=== PATIENT | female | born 1955 | race Caucasian/White ===

== ENCOUNTER 2024-10-12 18:29 | Inpatient (IN) ==
--- OUTSIDE RECORDS SUMMARY | 2024-10-12 18:34 | External Medical Summary | Summary of Care ---
Author Name Unknown Organization [facility] Address [address] [place] [address] Phone [phone] Care Team Providers Care Manager R D Name Role Phone Jessie Davies DO Primary Care Provider Reason for Visit * Reason Onset Date Comments Health Maintenance 05/20/2024 Encounter Details Date Type Department Care Team (Late st Contact Info) Description 05/20/2024 Telephone Family Practice [facility] [address] [facility] [place] [address] Jessie Davies DO [address] [place] [address] Health Maintenance Allergies Active Allergy Reactions Criticality Noted Date Comments Bactrim Rash 10/05/2007 Ciprofloxacin 11/27/2020 Doxycycline 10/03/1997 rash Hepatitis B Virus Vaccines 03/29/2005 Flu symptoms Pertussis Vaccine Other (Please comment) 02/28/2011 Severe arthritis documented as of this encounter (statuses as of 05/20/2024) Medications Medication Sig Dispensed Refills Start Date End Date Status OMEGA 3 1000 MG PO CAPS daily 0 03/04/2008 Active VITAMIN D3 2000 UNIT PO TABS 4000 units daily Active IBUPROFEN 200 MG PO TABS take 2-3 at bedtime as needed Active PROBIOTIC PO CAPS one daily Active Coenzyme Q10 (COQ10) 100 MG CAPS Take by mouth. Active Ascorbic Acid (VITAMIN C) 1000 MG Tablet Take 1 Tablet by mouth in the morning. Takes two to 4 tablets daily . Active Fluorouracil 5 % External Cream (Efudex)Indications: AK (actinic keratosis) Apply to rough patches on the face nightly x 2 weeks. 40 g 03/23/2021 Active Erythromycin 5 MG/GM Ophthalmic Ointment at bedtime . to both eyelids. 12/10/2021 Active Mucinex DM 30-600 MG Oral Tablet Extended Release 12 Hour Take by mouth. Activ e Benzonatate 100 MG Oral Capsule (Tessallinda Cason)Indications:V iral URI with cough Take 1 Capsule by mouth 3 times a day as needed for Cough. Do not cut, crush, or chew. 50 Capsule 1 10/24/2023 Active documented as of this encounter (statuses as of 05/20/2024) Active Problems Problem Noted Date Diagnosed Date Disorder of thyroid, unspecified 11/16/2021 Mixed hyperlipidemia 11/16/2021 Mixed rhinitis 09/10/2019 PND (post-nasal drip) 09/10/2019 Laryngopharyngeal reflux (LPR) 09/10/2019 Lingual tonsil hypertrophy 03/12/2018 Generalized OA 02/05/2012 Dyslipidemia 10/09/2009 Overview: Per Lipid Taxonomy. Gastroesophageal reflux disease with esophagitis 03/16/2004 documented as of this encounter (statuses as of 05/20/2024) Resolved Problems Problem Noted Date Diagnosed Date Resolved Date Chronic respiratory failure 11/16/2021 12/04/2022 Mild intermittent asthma without complication 11/27/19 21 12/04/2022 Deviated nasal septum 03/12/20182018 History of nonmelanoma skin cancer 07/31/2017 12/05/2018 Overview: SCC right latearl cheek 03/04 BCC righ antecubital fossa 08/02 History of nonmelanoma skin cancer 08/20/2016 07/31/2017 ALLERGIC RHINITIS - MIXED TYPE 03/07/2009 12/05/2018 Postnasal drip 03/07/2009 11/03/2017 Esophageal reflux 03/07/2009 11/03/2017 ADVANCE DIRECTIVE INFORMATION 07/27/2008 12/05/2018 Overview: No, Advance Directive brochure given to patient. Spondylolisthesis 03/16/2004 12/05/2018 IDIO PERIPH NEURPTHY NOS 08/13/1999 Myalgia and myositis 08/01/1999 019 Menopause 08/01/1999 07/03/2018 Uterine leiomyoma 02/09/1998 12/05/2018 Mixed dyslipidemia 10/09/ 9 Overview: Per Lipid Taxonomy. Dysphagia 12/05/2018 Overview: ICD-10 update of inactive term OTHER 07/03/2018 Overview: linqual tonsil hyperplasia documented as of this encounter (statuses as of 05/20/2024) Immunizations Name Administration Dates Next Due COVID-19 mRNA, LNP-s, No Pre serve, 2-Dose Series ([employer]) 10/24/2021,02/16/2021,01/24/2021 TD, Preservative Free 03/15/2022 TDAP, Age 7 and older, IM (Adacel) 12/14/2010, documented as of this encounter Social History Tobacco Use Types Packs/Day Years Used Date Smoking Tobacco: Never Smokeless Tobacco: Never Comments:no passive smoke ex posures Alcohol Use Standard Drinks/Week Comments No 0 (1 standard drink = 0.6 oz pur e alcohol) PHQ-2 Answer Date Recorded PHQ Adult Total Score 1 12/04/2022 Hunger Vital Sign Answer Date Recorded Within the past 12 months, y ou worried that your food would run out before you got the money to buy more. Never true 12/04/19 23 Within the past 12 months, t he food you bought just didn't last and you didn't have money to get more. Never true 12/04/2022 Sex and Gender Information Value Date Recorded Sex Assigned at Female 06/10/2019 11:27 AM EDT Gender Identity Female 06/10/2019 11:27 AM EDT Sexual Orientation Straight 06/10/2019 11 :27 AM EDT Job Start Date Occupation Industry Not on file Not on file Not on file documented as of this encounter Miscellaneous Notes * Telephone Encounter - Stephani Oropeza LPN - 05/20/2024 2:43 PM EDT Care Gaps Comprehensive Care Outreach Last Office/Telemedicine Visit: 03/05/2024 (in office), Visit date not found (telemedicine) Next Office Visit: Visit date not found Hemoglobin AIC Results: Lab Results Component Value Date/Time HEMOGLOBIN A1C - [facility] 6.5 (H) 06/24/2013 01:44 PM HEMOGLOBIN A1C - [facility] 6.4 (H) 09/08/2008 09:19 AM BP Readings from Last 1 Encounters: 03/05/24 128/78 Reviewed Health Maintenance below: Health Maintenance Topic Date Due Zoster Vaccines (1 of 2) Never done DXA Scan 03/05/2014 Pneumococcal Vaccine: 65+ Years (1 of 1 - PCV) Never done Colorectal Cancer Screening 02/08/2021 COVID-19 Vaccine () 06/20/2023 Depression Screening 12/04/2023 Mammogram 12/25/2023 Lipid Panel 03/29/2024 Recapture Ov Mamm Lab dexa Care Gap Outreach Action Taken: Unable to reach and [employer] message sent documented in this encounter Plan of Treatment Upcoming Encounters Date Type Department Care Team (Late st Contact Info) Description 08/04/2024 12:40 PM EDT Office Visit Dermatology [facility] [place] [address] [facility] [place] [address] Fernanda Anglin PA-C [address] [facility] [place] [address] Scheduled Procedures Name Priority Associated Diagnoses Date/Ti me COLONOSCOPY FLEXIBLE PROXIMAL DIAGNOSTIC Recall History of colon polyps Health Maintenance Due Date Last Done Comments Cologuard 1998 Fecal Occult Blood Test 1998 Sigmoidoscopy 1998 Zoster Vaccines (1 of 2) 2003 DXA Scan 03/05/2014 03/05/2007, 03/05/2007 Pneumococcal Vaccine: 65+ Years (1 of 1 - PCV) 2018 Colonoscopy 02/08/2021 02/09/2016, 01/19, 09/10/2004 Colorectal Cancer Screening 02/08/2021 COVID-19 Vaccine ( season) 2023 10/24/2021, 02/16/2021, 01/24/2021 Depression Screening 12/04/2023 12/04/2022, 02/21/2017 (Discussed) Mammogram 12/25/2023 12/24/2022, 0 04/2023, 09/23/2019, Additional history exists Lipid Panel 03/29/2024 03/29/2019, 03/20, 06/24/2013, Additional history exists Influenza Vaccine (FLU shot) (#1) 2024 RETIRED - COLONOSCOPY-EVERY 5 YRS AGES 18-100 Discontinued 02/09/2016, 02/09/2016, 09/10/2004 HPV (Gardasil) Vaccine Aged Out No lo nger eligible based on patient's age to complete this topic Hepatitis B Vaccine Aged Out No longe r eligible based on patient's age to complete this topic MENINGOCOCCAL (MENACTRA/MENVEO) Aged Out No longer eligible based on patient's age to complete this topic documented as of this encounter Medical Devices Implanted Type Area Floor Mechanic Device Identifier Shelf Expiration Date Model / Serial / Lot Lens Intraoc 17.5 - [id number] - [id number] Implanted:Qty: 1 on 12/05/2020 by Evan Quinonez MD at OR [facility] Left: Eye [employer]CH [employer] LOMB 06/19/2025 [id number] / [id number] / [id number] Lens Intraoc 18.5 - [id number] - [id number] Implanted:Qty: 1 on 12/14/2020 by Evan Quinonez MD at OR [facility] Right: Eye BAUSCH & LOMB 07/19/2025 [id number] / [id number] / [id number] documented as of this encounter Care Teams Manager R D Relationship Specialty Start Date End Date Jessie Davies DO [address] [place] [address] PCP - General Family Medicine 12/05/18 documented as of this encounter
--- OUTSIDE RECORDS SUMMARY | 2024-10-12 18:34 | External Medical Summary | Summary of Care ---
Author Name Unknown Organization [facility] Address [address] [place] [address] Phone [phone] Care Team Providers Care Slasher Runner Name Role Phone Jessie Davies Primary Care Provider Reason for Visit * Reason Comments Follow Up Skin check- pt repor ts scaly like patches on her face she would like evaluated Encounter Details Date Type Department Care Team (Late st Contact Info) Description 08/04/2024 12:40 PM EDT Office Visit Dermatology [facility] [address] [facility] [place] [address] Fernanda Anglin PA-C [address] [facility] [place] [address] Skin exam, screening for cancer*; Skin tumor; Diffuse photodamage of skin; History of nonmelanoma skin cancer; Actinic keratosis Allergies Active Allergy Reactions Criticality Noted Date Comments Bactrim Rash 10/05/2007 Ciprofloxacin 11/27/2020 Doxycycline 10/03/1997 rash Hepatitis B Virus Vaccines 03/29/2005 Flu symptoms Pertussis Vaccine Other (Please comment) 02/28/2011 Severe arthritis documented as of this encounter (statuses as of 08/06/2024) Medications Medication Sig Dispensed Refills Start Date [...] . Active Fluorouracil 5 % External Cream (Efudex)Indicati ons:AK (actinic keratosis) Apply to rough patches on the face nightly x 2 weeks. 40 g 03/23/2021 Active Additional Information Patient not taking.Reported on 08/04/2024 Erythromycin 5 MG/GM Ophthalmic Ointment at bedtime . to both eyelids. 12/10/2021 Active Benzonatate 100 MG Oral Capsule (Tesmunir Cason)Indicatio ns:Viral URI with cough Take 1 Capsule by mouth 3 times a day as needed for Cough. Do not cut, crush, or chew. 50 Capsule 1 10/24/2023 Active Additional Information Patient not taking.Reported on 08/04/2024 Multivitamin Adults Oral Tablet Take by mouth. Active Mucinex DM 30-600 MG Oral Tablet Extended Release 12 Hour Take by mouth. Discontinue d(Medicatio n List Clean Up) documented as of this encounter (statuses as of 08/06/2024) Active Problems Problem Noted Date Diagnosed Date Disorder of thyroid, unspecified 11/16/2021 Mixed hyperlipidemia 11/16/2021 Mixed rhinitis 09/10/2019 PND (post-nasal drip) 09/10/2019 Laryngopharyngeal reflux (LPR) 09/10/2019 Lingual tonsil hypertrophy 03/12/2018 Generalized OA 02/05/2012 Dyslipidemia 10/09/2009 Overview: Per Lipid Taxonomy. Gastroesophageal reflux disease with esophagitis 03/16/2004 documented as of this encounter (statuses as of 08/06/2024) Resolved Problems Problem Noted Date Diagnosed Date [...] 07/03/2018 Uterine leiomyoma 02/09/1998 12/05/2018 Mixed dyslipidemia 9 Overview: Per Lipid Taxonomy. Dysphagia 12/05/2018 Overview: ICD-10 update of inactive term OTHER 07/03/2018 Overview: linqual tonsil hyperplasia documented as of this encounter (statuses as of 08/06/2024) Immunizations Name Administration Dates Next Due COVID-19 mRNA, LNP-s, No Pre serve, 2-Dose Series (Pfizer) 10/24/2021,02/16/2021,01/24/2021 Diptheria/Tetanus (Adult) 08/12/1998 Rabies Vaccine (Rabavert) 03/12/1999,03/08/1999 TD, Preservative Free 03/15/2022 TDAP, Age 7 [...] on file documented as of this encounter Progress Notes * Chuck Perrin MD - 08/06/2024 10:40 AM EDT I have reviewed the charting notes and orders and associated images and agree with the assessment and plan of Fernanda Anglin PA-C I was available for consultation during and after the visit Chuck Perrin MD 08/06/2024 10:40 AM * Fernanda Anglin PA-C - 08/04/2024 12:44 PM EDT SUBJECTIVE: History of Present Illness: Melissa Moulton is a 69 year old female seen today for follow up of skin check. Date Last Appointment: 07/22/2023 (in office) Few dry patches on face- had treated with efudex last year Also 2 spots on scalp in part-line that feel scaly H/o SCC crown of scalp 2018, BCC R antecubital fossa 2013, SCC R cheek 2015 H/o AK's s/p cryo and Efudex 2021 REVIEW OF SYSTEMS: SKIN: No other new or changing moles. HEME/LYMPH: No new or enlarging lumps or bumps. MEDICA TIONS: Current Outpatient Medications Medication Sig Dispense Refill OMEGA 3 1000 MG PO CAPS daily 0 VITAMIN D3 2000 UNIT PO TABS 4000 units daily IBUPROFEN 200 MG PO TABS take 2-3 at bedtime as needed PROBIOTIC PO CAPS one daily Coenzyme Q10 (COQ10) 100 MG CAPS Take by mouth. Ascorbic Acid (VITAMIN C) 1000 MG Tablet Take 1 Tablet by mouth in the morning. Takes two to 4 tablets daily . Multivitamin Adults Oral Tablet Take by mouth. Fluorouracil 5 % External Cream (Efudex) Apply to rough patches on the face nightly x 2 weeks. (Patient not taking: Reported on 08/04/2024) 40 g 0 Erythromycin 5 MG/GM Ophthalmic Ointment at bedtime . to both eyelids. Benzonatate 100 MG Oral Capsule (Tessallinda Cason) Take 1 Capsule by mouth 3 times a day as needed for Cough. Do not cut, crush, or chew. (Patient not taking: Reported on 08/04/2024) 50 Capsule 1 No current facility-administered medications for this visit. ALLERG IES: Bactrim, Ciprofloxacin, Doxycycline, Hepatitis b virus vaccines, and Pertussis vaccine OBJECTIVE: GEN: Healthy, alert, no distress, appears oriented, pleasant, and cooperative. SKIN: Detailed exam of hair, face including lids and lips, neck, chest, abdomen, back, bilateral upper ext. (arm, hand, fingers), bilateral lower ext. (leg, foot, toes), and palpation of scalp completed and are normal except: 1. Scars- scalp, R cheek, R antecubital fossa 2. Part-line of scalp, R suprabrow, R lateral eyebrow- 4 keratotic pink papules 3. R nasal tip- 2mm keratotic papule 4. Posterior scalp- 1cm pink scaly patch ASSESS MENT/PLAN: 1. Hx NMSC - no evidence of recurrence Discussed sun protection with patient including proper use of sunscreens and protective clothing. ABCDs explained 2. Aks. Cryosurgery explained to the patient, consent obtained, patient, site and procedure verified, and then cryotherapy was performed with Liquid Nitrogen via cryo spray unit to 4 lesions. Location noted in physical exam. Post op course explained. 3. AK vs NMSC. (Thin shave) Biopsy of the lesion noted above to establish and confirm diagnosis. The procedure, risks, benefits, alternatives and expected outcomes were discussed with the patient and consent was obtained. Time out called. Patient identified, procedure verified, site identified and verified. Patient and staff present in agreement. Area prepped with alcohol and anesthetized with 0.5% lidocaine with epinephrine at 1:200,000 concentration. Biopsy of lesion performed. 20% AlCl and bandaging applied. Specimen sent to pathology. Patient instructed in routine post-op care. 4. Unclear etiology. Appears to be a dermatitis, possibly nummular. No papule or nodule is palpable. Recheck in 6 months. Follow-up: 6 months (recheck Aks, recheck posterior scalp lesion) There were no barriers tolearning and no other pain was related to today's visit. The patient and/or person accompanying patient demonstrates understanding of the visit and treatment. Fernanda Anglin PA-C 08/04/2024 12:45 PM documented in this encounter Nursing Notes * Maru Flores LPN - 08/04/2024 12:34 PM EDT Patient identified by name and date of . Do you have any concerns about pain management for today's visit? No Living Will or Advance Directive for Health Care as noted on problem list. [facility] is a way you can talk to your provider online through e-mail. Would you like to sign up? I can activate it for you? ALREADY ACTIVE Chief Complaint Patient presents with Follow Up Skin check- pt reports scaly like patches on her face she would like evaluated documented in this encounter Miscellaneous Notes * Addendum Note - Maru Flores LPN - 08/04/2024 3:15 PM EDTAddended by: MARU FLORES on: 08/04/2024 03:15 PM Modules accepted: Orders documented in this encounter Plan of Treatment Upcoming Encounters Date Type Department Care Team (Late st Contact Info) Description 05/04/2025 9:00 AM EDT Office Visit [facility]atology [facility] [address] [place] [address] Fernanda Anglin PA-C [address] [facility] [place] [address] Scheduled Procedures Name Priority Associated Diagnoses Date/Ti me COLONOSCOPY FLEXIBLE PROXIMAL DIAGNOSTIC Recall History of colon polyps Health Maintenance Due Date Last Done Comments Cologuard 1998 Fecal Occult Blood Test 1998 Sigmoidoscopy 1998 Zoster Vaccines (1 of 2) 2003 DXA Scan 03/05/2014 03/05/2007, 03/05/2007 Pneumococcal Vaccine: 65+ Years (1 of 1 - PCV) 2018 Adult Wellness Visit 2019 Colonoscopy 02/08/2021 02/09/2016, 01/19, 09/10/2004 Colorectal Cancer Screening 02/08/2021 Depression Screening 12/04/2023 12/04/2022, 02/21/2017 (Discussed) Mammogram 12/25/2023 12/24/2022, 04/2023, 09/23/2019, Additional history exists Lipid Panel 03/29/2024 03/29/2019, 03/20, 06/24/2013, Additional history exists COVID-19 Vaccine ( season) 2024 10/24/2021, 02/16/2021, 01/24/2021 Influenza Vaccine (FLU shot) (#1) 2024 RETIRED [...] this encounter Medical Devices Implanted Type Area Drum Sprayer Device Identifier Shelf Expiration Date Model / Serial / Lot Lens Intraoc 17.5 - [id number] - [id number] Implanted:Qty: 1 on 12/05/2020 by Evan Quinonez MD at [facility] Left: Eye BAUSCH [employer] LOMB 06/19/2025 [id number] / [id number] / [id number] Lens Intraoc 18.5 - [id number] - [id number] Implanted:Qty: 1 on 12/14/2020 by Evan Quinonez MD at OR [facility] Right: Eye BAUSCH & LOMB 07/19/2025 [id number] / [id number] / [id number] documented as of this encounter Procedures Procedure Name Priority Date/Time Associated Diagnosis Comments SURGICAL PATHOLOGY Routine 08/04/2024 1: 07 PM EDT Skin tumor DERM IMAGE (SITE) Routine 08/04/2024 Skin tumor documented in this encounter Results * SURGICAL PATHOLOGY (08/04/2024 1:07 PM EDT) Final Diagnosis A. Skin, R nasal tip, shave: Actinic keratosis. 08/06/2024 9:00 AM EDT [facility] Clinical History See Order Comments 08/06/2024 9:00 AM EDT [facility] Order Comments R nasal tip- 2mm keratotic papule. Ak vs nmsc. (Thin shave) 08/06/2024 9:00 AM EDT [facility] Gross Description A. Skin. Received in formalin with a container labeled with "Melissa Moulton", "[id number]", "1955" and " right nasal tip". Received is a 0.5 x 0.4 cm skin shave. The skin surface is white-simmons, firm, smooth throughout. The underlying tissue is inked. The specimen is bisected and submitted in cassette A1. Gross By: MF 08/06/2024 9:00 AM EDT [facility]ORY [facility] Sign Out Location Pathologist sign out performed at [facility] ([facility]), [address] [place] [address], [place] [address]. 08/06/2024 9:00 AM EDT [facility]ORY [facility] Photographic images and diagrams represent diaz findings in this case; they are not intended to replace a complete review of the final diagnostic report. The following statement applies to Flow Cytometry, Histology, In situ Hybridization Assays and Molecular Genetics. This test was developed and performed at [facility] and its performance characteristics determined by [employer]. It has not been cleared or approved by the U.S. Food and Drug Administration. The FDA has determined that such clearance or approval is not necessary. This test is used for clinical purposes. It should not be regarded as investigational or for research. Special stains, including histochemical stains, and studies using immunologic and ADIEL methodology (where applicable) are performed with appropriate positive and negative control reactions. 08/06/2024 9:00 AM EDT LAB[facility]ORY [facility] Tissue Skin structure / Unknown 08/04/2024 1:07 PM EDT 08/04/2024 1:07 PM EDT Comment:R nasal tip- 2mm ker atotic papule. Ak vs nmsc. (Thin shave) Fernanda Anglin PA-C LAB PATHOLOGY [facility] [address] [place] [address] * DERM IMAGE (SITE) (08/04/2024) 08/04/2024 Fernanda Anglin PA-C DIGITAL PHOTOGR APHY documented in this encounter Visit Diagnoses Diagnosis Skin exam, screening for cancer- Primary Screening for malignant neoplasm of the skin Skin tumor Neoplasm of uncertain behavior of skin Diffuse photodamage of skin Other chronic dermatitis due to solar radiation History of nonmelanoma skin cancer Personal history of other malignant neoplasm of skin Actinic keratosis documented in this encounter Care Teams Slasher Runner Relationship Specialty Start Date End Date Jessie Davies DO [address] [place] [address] PCP - General Family Medicine 12/05/18 documented as of this encounter
--- OUTSIDE RECORDS SUMMARY | 2024-10-12 18:34 | External Medical Summary | Summary of Care ---
Author Name Unknown Organization [facility] Address [address] [place] [address] Phone [phone] Care Team Providers Care Commercial Real Estate Underwriter Name Role Phone Jessie Davies DO Primary Care Provider Reason for Visit * Reason Onset Date Comments Health Maintenance 08/25/2024 Encounter Details Date Type Department Care Team (Late st Contact Info) Description 08/25/2024 Telephone Family Practice [facility] [address] [facility] [place] [address] Jessie Davies DO [address] [place] [address] Health Maintenance Allergies Active Allergy Reactions Criticality Noted Date Comments Bactrim Rash 10/05/2007 Ciprofloxacin 11/27/2020 Doxycycline 10/03/1997 rash Hepatitis B Virus Vaccines 03/29/2005 Flu symptoms Pertussis Vaccine Other (Please comment) 02/28/2011 Severe arthritis documented as of this encounter (statuses as of 08/25/2024) Medications Medication Sig Dispensed Refills Start Date [...] . Active Fluorouracil 5 % External Cream (Efudex)Indication s:AK (actinic keratosis) Apply to rough patches on the face nightly x 2 weeks. 40 g 03/23/2021 Active Additional Information Patient not taking.Reported on 08/04/2024 Erythromycin 5 MG/GM Ophthalmic Ointment at bedtime . to both eyelids. 12/10/2021 Active Benzonatate 100 MG Oral Capsule (Tessallinda Perlheri)Indications :Viral URI with cough Take 1 Capsule by mouth 3 times a day as needed for Cough. Do not cut, crush, or chew. 50 Capsule 1 10/24/2023 Active Additional Information Patient not taking.Reported on 08/04/2024 Multivitamin Adults Oral Tablet Take by mouth. Ac tive documented as of this encounter (statuses as of 08/25/2024) Active Problems Problem Noted Date Diagnosed Date Disorder of thyroid, unspecified 11/16/2021 Mixed hyperlipidemia 11/16/2021 Mixed rhinitis 09/10/2019 PND (post-nasal drip) 09/10/2019 Laryngopharyngeal reflux (LPR) 09/10/2019 Lingual tonsil hypertrophy 03/12/2018 Generalized OA 02/05/2012 Dyslipidemia 10/09/2009 Overview: Per Lipid Taxonomy. Gastroesophageal reflux disease with esophagitis 03/16/2004 documented as of this encounter (statuses as of 08/25/2024) Resolved Problems Problem Noted Date Diagnosed Date [...] 07/03/2018 Uterine leiomyoma 02/09/1998 12/05/2018 Mixed dyslipidemia 10/09/200 9 Overview: Per Lipid Taxonomy. Dysphagia 12/05/2018 Overview: ICD-10 update of inactive term OTHER 07/03/2018 Overview: linqual tonsil hyperplasia documented as of this encounter (statuses as of 08/25/2024) Immunizations Name Administration Dates Next Due COVID-19 mRNA, LNP-s, No Pre serve, 2-Dose Series ([employer]) 10/24/2021,02/16/2021,01/24/2021 TD, Preservative Free 03/15/2022 TDAP, Age [...] Telephone Encounter - Stephani Oropeza LPN - 08/25/2024 10:29 AM EST Care Gaps Comprehensive Care Outreach Last Office/Telemedicine [...] (1 of 1 - PCV) Never done Adult Wellness Visit Never done Colorectal Cancer Screening 02/08/2021 Depression Screening 12/04/2023 Mammogram 12/25/2023 Reached out in May and sent letter Care Gap Outreach Action Taken: Outreach not indicated documented in this encounter Plan of Treatment Upcoming Encounters Date Type Department Care Team (Late st Contact Info) Description 05/04/2025 9:00 AM EDT Office Visit Dermatology [facility] 200 [facility] [place] [address] Fernadna Anglin PA-C [address] [facility] [place] [address] Scheduled Procedures Name Priority Associated Diagnoses Date/Ti [...] this encounter Medical Devices Implanted Type Area Manager College Device Identifier Shelf Expiration Date Model / Serial / Lot Lens Intraoc 17.5 - [id number] - [id number] Implanted:Qty: 1 on 12/05/2020 by Evan Quinonez MD at OR [facility] Left: Eye BAUSCH & LOMB 06/19/2025 [id number] / [id number] / [id number] Lens Intraoc 18.5 - [id number] - [id number] Implanted:Qty: 1 on 12/14/2020 by Evan Quinonez MD at OR [facility] Right: Eye BAUSCH & LOMB 07/19/2025 [id number] / [id number] / [id number] documented as of this encounter Care Teams Commercial Real Estate Underwriter Relationship Specialty Start Date End Date Jessie Davies DO [address] [place], [place] [address] PCP - General Family Medicine 12/05/18 documented as of this encounter
--- OUTSIDE RECORDS SUMMARY | 2024-10-12 18:34 | External Medical Summary | Summary of Care ---
Author Name Unknown Organization [facility] Address [address] [place] [address] Phone [phone] Care Team Providers Care Rhinologist Name Role Phone Jessie Davies DO Primary Care Provider Reason for Visit * Reason Onset Date Comments Health Maintenance 08/25/2024 Encounter Details Date Type Department Care Team (Late st Contact Info) Description 08/25/2024 Telephone Family Practice [facility] 200 [place] [address] Jessie Davies DO [address] [place] [address] Health Maintenance Allergies Active Allergy Reactions Criticality Noted Date Comments Bactrim Rash 10/05/2007 Ciprofloxacin 11/27/2020 Doxycycline 10/03/1997 rash Hepatitis B Virus Vaccines 03/29/2005 Flu symptoms Pertussis Vaccine Other (Please comment) 02/28/2011 Severe arthritis documented as of this encounter (statuses as of 08/31/2024) Medications OMEGA 3 1000 MG PO CAPS daily 0 8 Active VITAMIN D3 2000 UNIT PO TABS 4000 units daily Active IBUPROFEN 200 MG PO TABS take 2-3 at bedtime as needed Active PROBIOTIC PO CAPS one daily Active Coenzyme Q10 (COQ10) 100 MG CAPS Take by mouth. Activ e Ascorbic Acid (VITAMIN C) 1000 MG Tablet Take 1 Tablet by mouth in the morning. Takes two to 4 tablets daily . Active Fluorouracil 5 % External Cream (Efudex)Indicat ions:AK (actinic keratosis) Apply to rough patches on the face nightly x 2 weeks. 40 g 1 Active Additional Information Patient not taking.Reported on 08/04/2024 Erythromycin 5 MG/GM Ophthalmic Ointment at bedtime . to both eyelids. 2 Active Benzonatate 100 MG Oral Capsule (Carlita Cason)Indicati ons:Viral URI with cough Take 1 Capsule by mouth 3 times a day as needed for Cough. Do not cut, crush, or chew. 50 Capsule 1 4 Active Additional Information Patient not taking.Reported on 08/04/2024 Multivitamin Adults Oral Tablet Take by mouth. Activ e documented as of this encounter (statuses as of 08/31/2024) Active Problems Problem Noted Date Diagnosed Date Disorder of thyroid, unspecified 11/16/2021 Mixed hyperlipidemia 11/16/2021 Mixed rhinitis 09/10/2019 PND (post-nasal drip) 09/10/2019 Laryngopharyngeal reflux (LPR) 09/10/2019 Lingual tonsil hypertrophy 03/12/2018 Generalized OA 02/05/2012 Dyslipidemia 10/09/2009 Overview (10/09/2009): Per Lipid Taxonomy. Gastroesophageal reflux disease with esophagitis 03/16/2004 documented as of this encounter (statuses as of 08/31/2024) Resolved Problems Problem Noted Date Diagnosed Date Resolved Date Chronic respiratory failure 11/16/2021 12/04/2022 Mild intermittent asthma without complication 11/27/19 21 12/04/2022 Deviated nasal septum 03/12/20182018 History of nonmelanoma skin cancer 07/31/2017 12/05/2018 Overview (07/31/2017): SCC right latearl cheek 03/04 BCC righ antecubital fossa 08/02 History of nonmelanoma skin cancer 08/20/2016 07/31/2017 ALLERGIC RHINITIS - MIXED TYPE 03/07/2009 12/05/2018 Postnasal drip 03/07/2009 11/03/2017 Esophageal reflux 03/07/2009 11/03/2017 ADVANCE DIRECTIVE INFORMATION 07/27/2008 12/05/2018 Overview (06/24/2008): No, Advance Directive brochure given to patient. Spondylolisthesis 03/16/2004 12/05/2018 IDIO PERIPH NEURPTHY NOS 08/13/1999 Myalgia and myositis 08/01/1999 019 Menopause 08/01/1999 07/03/2018 Uterine leiomyoma 02/09/1998 12/05/2018 Mixed dyslipidemia 9 Overview (10/09/2009): Per Lipid Taxonomy. Dysphagia 12/05/2018 Overview (01/11/2016): ICD-10 update of inactive term OTHER 07/03/2018 Overview (03/04/2008): linqual tonsil hyperplasia documented as of this encounter (statuses as of 08/31/2024) Immunizations Name Administration Dates Next Due COVID-19 [...] money to get more. Never true 12/04/2022 Comments No Sex and Gender Information Value Date Recorded Sex Assigned at Female 06/10/2019 11:27 AM EDT Legal Sex Female 5:25 AM EST Gender Identity Female 06/10/2019 11:27 AM EDT Sexual Orientation Straight 06/10/2019 11 :27 AM EDT Occupation Industry Job Start Date Job End Date housewife Not on file Not on file Not on file documented as of this encounter Miscellaneous Notes * Telephone Encounter - Stephani Oropeza LPN - 08/31/2024 8:58 AM EST Patient left me a vm. I tried to call her back. It sounds like someone picks up and hangs up. * Telephone Encounter - Stephani Oropeza LPN [...] Office Visit [facility]atology [facility] [address] [place] [address] Fernanda Anglin PA-C [address] [place] [address] Scheduled Procedures Name Priority Associated Diagnoses Date/Ti [...] this encounter Medical Devices Implanted Type Area Rodbuster Device Identifier Shelf Expiration Date Model / Serial / Lot Lens Intraoc 17.5 - [id number] - [id number] Implanted:Qty: 1 on 12/05/2020 by Evan Quinonez MD at OR [facility] Left: Eye BAUSCH & LOMB 06/19/2025 [id number] / [id number] / [id number] Lens Intraoc 18.5 - [id number] - [id number] Implanted:Qty: 1 on 12/14/2020 by Evan Quinonez MD at OR [facility] Right: Eye BAUSCH & LOMB 07/19/2025 [id number] / [id number] / [id number] documented as of this encounter Care Teams Rhinologist Relationship Specialty Start Date End Date Jessie Davies DO [address] [place] [address] PCP - General Family Medicine 12/05/18 documented as of this encounter
--- OUTSIDE RECORDS SUMMARY | 2024-10-12 18:34 | External Medical Summary | Summary of Care ---
Author Name Unknown Organization [facility] Address [address] [place] [address] Phone [phone] Care Team Providers Care Manager Mail Name Role Phone Jessie Davies Primary Care Provider Reason for Visit * Reason Comments Cough Sinus Problem Encounter Details Date Type Department Care Team (Latest Contact Info) Description 09/09/2024 1:00 PM EST Office Visit General Internal Medicine [facility] 200 [facility] [place] [address] Miriam Bertrand MD [address] [facility] [place] [address] Bronchitis, complicated*; Nodule of right lobe of thyroid gland; Mixed hyperlipidemia Allergies Active Allergy Reactions Criticality Noted Date Comments Bactrim Rash 10/05/2007 Ciprofloxacin 11/27/2020 Doxycycline 10/03/1997 rash Hepatitis B Virus Vaccines 03/29/2005 Flu symptoms Pertussis Vaccine Other (Please comment) 02/28/2011 Severe arthritis documented as of this encounter (statuses as of 09/09/2024) Medications OMEGA 3 1000 MG PO CAPS [...] bedtime . to both eyelids. 2 Active Multivitamin Adults Oral Tablet Take by mouth. Activ e Azithromycin 250 MG Oral Tablet (Zithromax Z-Angle) Take two tablets by mouth on first day, then 1 tablet daily until gone 6 Tablet 4 Active Benzonatate 100 MG Oral Capsule (Tessalon Perles)Indicati ons:Bronchitis, complicated Take 1 Capsule by mouth 3 times a day as needed for Cough. Do not cut, crush, or chew. 50 Capsule 1 4 Active Ventolin HFA 108 (90 Base) MCG/ACT Inhalation Aerosol SolutionIndicat ions:Bronchitis , complicated Inhale 2 Puffs by mouth every 4 hours as needed for Wheezing. 18 g 3 4 Active predniSONE 20 MG Oral Tablet (Deltasone)Jacinta cations:Bronchi tis, complicated Take 2 Tablets by mouth in the morning for 5 days. 10 Tablet 4 024 Active Benzonatate 100 MG Oral Capsule (Tessalon Perles)Indicati ons:Viral URI with cough Take 1 Capsule by mouth 3 times a day as needed for Cough. Do not cut, crush, or chew. 50 Capsule 1 4 024 Discontin ued(End of Procedure ) documented as of this encounter (statuses as of 09/09/2024) Active Problems Problem Noted Date Diagnosed Date Nodule of right lobe of thyroid gland 09/09/2024 Disorder of thyroid, unspecified 11/16/2021 Mixed hyperlipidemia 11/16/2021 Mixed rhinitis 09/10/2019 PND (post-nasal drip) 09/10/2019 Laryngopharyngeal reflux (LPR) 09/10/2019 Lingual tonsil hypertrophy 03/12/2018 Generalized OA 02/05/2012 Dyslipidemia 10/09/2009 Overview (10/09/2009): Per Lipid Taxonomy. Gastroesophageal reflux disease with esophagitis 03/16/2004 documented as of this encounter (statuses as of 09/09/2024) Resolved Problems Problem Noted Date Diagnosed Date [...] as of this encounter (statuses as of 09/09/2024) Immunizations Name Administration Dates Next Due COVID-19 mRNA, LNP-s, No Pre serve, 2-Dose Series ([employer]) 10/24/2021,02/16/2021,01/24/2021 TD, Preservative Free 03/15/2022 TDAP, Age [...] on file documented as of this encounter Last Filed Vital Signs Vital Sign Reading Time Taken Comments Blood Pressure 124/72 09/09/2024 1:06 PM EST Pulse 58 09/09/2024 1:06 PM EST Temperature 37.3 C (99.1 F) 09/09/2024 1:06 PM ES T Respiratory Rate - - Oxygen Saturation 96% 09/09/2024 1:06 PM EST Inhaled Oxygen Concentration - - Weight 75.8 kg (167 lb 3.2 oz) 09/09/2024 1:06 P M EST Height 152.4 cm (5') 09/09/2024 1:06 PM EST Body Mass Index 32.65 09/09/2024 1:06 PM EST documented in this encounter Progress Notes * Miriam Bertrand MD - 09/09/2024 1:14 PM EST Images from the original note were not included. History of Present Illness Melissa Moulton is a 69 year old female that presents for Cough and Sinus Problem Pt is here for worsening cough with green phegm, sinus pressure, PND, fever at home for around a week. Headache+ Have tried nsaids, mucinex with some relief. Wheezing+ Home covid negative. Doesn't take flu shot. Physical Exam Vitals: 09/09/24 1306 Temp: 99.1 F (37.3 C) Pulse: 58 SpO2: 96% BP: 124/72 BMI: 32.65 BP Readings from Last 3 Encounters: 09/09/24 124/72 03/05/24 128/78 10/24/23 132/62 Wt Readings from Last 3 Encounters: 09/09/24 167 lb 3.2 oz (75.8 kg) 03/05/24 164 lb 12 oz (74.7 kg) 10/24/23 164 lb 1.6 oz (74.4 kg) BMI Readings from Last 3 Encounters: 09/09/24 32.65 kg/m 03/05/24 32.18 kg/m 10/24/23 32.05 kg/m Ht Readings from Last 3 Encounters: 09/09/24 5' (1.524 m) 10/24/23 5' (1.524 m) 11/24/22 5' (1.524 m) HEENT: PERRLA, EOMI, anicteric sclera, b/l tympanic membrane is pearly white, no erythema, no pharyngeal erythema, no lymphadenopathy, neck supple CVS: RRR, no murmurs, rubs or gallops, s1 s 2normal. RESP: coarse to auscultation, +wheezing , no crackles EXT: no edema, cyanosis, peripheral pulses palpable bilaterally No large joint swelling, no redness, range of motion normal. Skin normal. Gait normal. Mood stable No focal weakness I have reviewed the following results: None Assessment and Plan Bronchitis, complicated (Primary) - Benzonatate 100 MG Oral Capsule (Tessalon Perlheri); Take 1 Capsule by mouth 3 times a day as needed for Cough. Do not cut, crush, or chew. - Ventolin HFA 108 (90 Base) MCG/ACT Inhalation Aerosol Solution; Inhale 2 Puffs by mouth every 4 hours as needed for Wheezing. - predniSONE 20 MG Oral Tablet (Deltasone); Take 2 Tablets by mouth in the morning for 5 days. Advised hydration. Nodule of right lobe of thyroid gland Mixed hyperlipidemia Other orders - Azithromycin 250 MG Oral Tablet (Zithromax Z-Angel); Take two tablets by mouth on first day, then 1tablet daily until gone Wrap-Up Time: I spent a total of 30-39 minutes (exact time 30 mins) on the date of service in preparation, delivery, and documentation of the care provided to Melisas Moulton excluding any time spent in the performance of separately billed services. documented in this encounter Nursing Notes * Reta Baez CMA - 09/09/2024 1:03 PM EST Patient presents today with complaints of cold symptoms that started on Friday. She has significant sinus pressure causing headache, chest congestion with green mucus production, persistent cough that gets worse when laying down, as well as worsening congestion with laying down. She denies any fever or chills since Friday, did see temps of 100-101. She is taking mucinex and advil. documented in this encounter Plan of Treatment Upcoming Encounters Date Type Department Care Team (Late st Contact Info) Description 05/04/2025 9:00 AM EDT Office Visit Dermatology [facility] [place] 200 [facility] [place] [address] Fernanda Anglin PA-C 200 [facility] [place] [address] Scheduled Procedures Name Priority Associated Diagnoses Date/Ti [...] this encounter Medical Devices Implanted Type Area Emergency Registrar Device Identifier Shelf Expiration Date Model / Serial / Lot Lens Intraoc 17.5 - [id number] - [id number] Implanted:Qty: 1 on 12/05/2020 by Evan Quinonez MD at OR [facility] Left: Eye BAUSCH [employer] LOMB 06/19/2025 [id number] / [id number] / [id number] Lens Intraoc 18.5 - [id number] - [id number] Implanted:Qty: 1 on 12/14/2020 by Evan Quinonez MD at OR [facility] Right: Eye BAUSCH & LOMB 07/19/2025 [id number] / [id number] / [id number] documented as of this encounter Visit Diagnoses Diagnosis Bronchitis, complicated- Primary Bronchitis, not specified as acute or chronic Nodule of right lobe of thyroid gland Mixed hyperlipidemia documented in this encounter Care Teams Manager Mail Relationship Specialty Start Date End Date Jessie Davies DO [address] [place] [address] PCP - General Family Medicine 12/05/18 documented as of this encounter
--- OUTSIDE RECORDS SUMMARY | 2024-10-12 18:34 | External Medical Summary | Summary of Care ---
Author Name Unknown Organization [facility] Address [address] [place] [address] Phone [phone] Care Team Providers Care Cut Lace Machine Operator Name Role Phone Jessie Davies Primary Care Provider Reason for Visit * Reason Onset Date Comments Mycode - Thinking About It But No Form Provided 08/04/2024 Encounter Details Date Type Department Care Team (Late st Contact Info) Description 08/04/2024 Orders Only Outcomes Research Department [address] [place], [place] [id number] Guy Conner CHRA MyCode Nonconsent Documentation Allergies Active Allergy Reactions Criticality Noted Date Comments Bactrim Rash 10/05/2007 Ciprofloxacin 11/27/2020 Doxycycline 10/03/1997 rash Hepatitis B Virus Vaccines 03/29/2005 Flu symptoms Pertussis Vaccine Other (Please comment) 02/28/2011 Severe arthritis documented as of this encounter (statuses as of 08/04/2024) Medications Medication Sig Dispensed Refills Start Date [...] Active Benzonatate 100 MG Oral Capsule (Tessallinda Cason)Indications :Viral URI with cough Take 1 Capsule by mouth 3 times a day as needed for Cough. Do not cut, crush, or chew. 50 Capsule 1 10/24/2023 Active Additional Information Patient not taking.Reported on 08/04/2024 Multivitamin Adults Oral Tablet Take by mouth. Ac tive documented as of this encounter (statuses as of 08/04/2024) Active Problems Problem Noted Date Diagnosed Date Disorder of thyroid, unspecified 11/16/2021 Mixed hyperlipidemia 11/16/2021 Mixed rhinitis 09/10/2019 PND (post-nasal drip) 09/10/2019 Laryngopharyngeal reflux (LPR) 09/10/2019 Lingual tonsil hypertrophy 03/12/2018 Generalized OA 02/05/2012 Dyslipidemia 10/09/2009 Overview: Per Lipid Taxonomy. Gastroesophageal reflux disease with esophagitis 03/16/2004 documented as of this encounter (statuses as of 08/04/2024) Resolved Problems Problem Noted Date Diagnosed Date [...] as of this encounter (statuses as of 08/04/2024) Immunizations Name Administration Dates Next Due COVID-19 mRNA, LNP-s, No Pre serve, 2-Dose Series ([employer]) 10/24/2021,02/16/2021,01/24/2021 TD, Preservative Free 03/15/2022 TDAP, Age [...] as of this encounter Progress Notes * Guy Conner CHRA - 08/04/2024 3:10 PM EDT MyCode Nonconsent Documentation Melissa Moulton was approached in the clinic regarding participation in the MyCode Project and did not consent. documented in this encounter Plan of Treatment Upcoming Encounters Date Type Department Care Team (Late st Contact Info) Description 05/04/2025 9:00 AM EDT [facility] [address] [facility] [place] [address] Fernanda Anglin PA-C 200 [facility] [place] [address] Scheduled Procedures Name Priority Associated Diagnoses Date/Ti [...] 12/04/2023 12/04/2022, 02/21/2017 (Discussed) Mammogram 12/25/2023 12/24/2022, 0304/2023, 09/23/2019, Additional history exists Lipid Panel 03/29/2024 03/29/2019, 03/20, 06/24/2013, Additional history exists COVID-19 Vaccine (2023- season) 2024 10/24/2021, 02/16/2021, 01/24/2021 Influenza Vaccine [...] this encounter Medical Devices Implanted Type Area Business Agent Device Identifier Shelf Expiration Date Model / Serial / Lot Lens Intraoc 17.5 - [id number] - [id number] Implanted:Qty: 1 on 12/05/2020 by Evan Quinonez MD at OR [facility] Left: Eye [employer]USCH [employer] LOMB 06/19/2025 [id number] / [id number] / [id number] Lens Intraoc 18.5 - [id number] - [id number] Implanted:Qty: 1 on 12/14/2020 by Evan Quinonez MD at OR [facility] Right: Eye BAUSCH & LOMB 07/19/2025 [id number] / [id number] / [id number] documented as of this encounter Care Teams Cut Lace Machine Operator Relationship Specialty Start Date End Date Jessie Davies DO [address] [place] [address] PCP - General Family Medicine 12/05/18 documented as of this encounter
--- OUTSIDE RECORDS SUMMARY | 2024-10-12 18:34 | External Medical Summary | Summary of Care ---
Author Name Unknown Organization [facility] Address [address] [place] [address] Phone [phone] Care Team Providers Care Archery Equipment Repairer Name Role Phone Jessie Davies Primary Care Provider Reason for Visit * Reason Comments Follow Up Skin check- pt repor ts scaly like patches on her face she would like evaluated Encounter Details Date Type Department Care Team (Late st Contact Info) Description 08/04/2024 12:40 PM EDT Office Visit Dermatology [facility] [address] [facility] [place] [address] Fernanda Anglin PA-C [address] [facility] [place] [address] Skin exam, screening for cancer*; Skin tumor; [...] mRNA, LNP-s, No Pre serve, 2-Dose Series (Stratos) 10/24/2021,02/16/2021,01/24/2021 TD, Preservative Free 03/15/2022 TDAP, Age [...] as of this encounter Progress Notes * Fernanda Anglin PA-C - 08/04/2024 12:44 [...] both eyelids. Benzonatate 100 MG Oral Capsule (Carlita Cason) Take 1 Capsule by mouth 3 [...] Health Care as noted on problem list. [facility] is a way you can talk to your provider online through e-mail. Would you like to sign up? I can activate it for you? ALREADY ACTIVE Chief Complaint Patient presents with Follow Up Skin check- pt reports scaly like patches on her face she would like evaluated documented in this encounter Plan of Treatment Upcoming Encounters Date Type Department Care Team (Late st Contact Info) Description 05/04/2025 9:00 AM EDT Office Visit Dermatology [facility] [place] [address] [facility] [place] [address] Fernanda Anglin PA-C [address] [facility] [place] [address] Pending Results Name Type Priority Associated Diagnoses Date /Time SURGICAL PATHOLOGY Pathology Routine Skin tumor 08/04/2024 1:07 PM EDT Scheduled Procedures Name Priority Associated Diagnoses Date/Ti az COLONOSCOPY FLEXIBLE PROXIMAL DIAGNOSTIC Recall History of [...] 12/04/2023 12/04/2022, 02/21/2017 (Discussed) Mammogram 12/25/2023 12/24/2022, 030 04/2023, 09/23/2019, Additional history exists Lipid Panel [...] this encounter Medical Devices Implanted Type Area Histotechnologist Supervisor Device Identifier Shelf Expiration Date Model / Serial / Lot Lens Intraoc 17.5 - [id number] - [id number] Implanted:Qty: 1 on 12/05/2020 by Evan Quinonez MD at OR [facility] Left: Eye [employer]USCH [employer] LOMB 06/19/2025 [id number] / [id number] / [id number] Lens Intraoc 18.5 - [id number] - [id number] Implanted:Qty: 1 on 12/14/2020 by Evan Quinonez MD at OR [facility] Right: Eye BAUSCH [employer] LOMB 07/19/2025 [id number] / [id number] / [id number] documented as of this encounter Visit Diagnoses Diagnosis Skin exam, screening for cancer- Primary Screening for malignant neoplasm of the skin Skin tumor Neoplasm of uncertain behavior of skin Diffuse photodamage of skin Other chronic dermatitis due to solar radiation History of nonmelanoma skin cancer Personal history of other malignant neoplasm of skin Actinic keratosis documented in this encounter Care Teams Archery Equipment Repairer Relationship Specialty Start Date End Date Jessie Davies DO [address] [place] [address] PCP - General Family Medicine 12/05/18 documented as of this encounter
--- OUTSIDE RECORDS SUMMARY | 2024-10-12 18:34 | External Medical Summary | Summary of Care ---
Author Name Unknown Organization [facility] Address [address] [place] [address] Phone [phone] Care Team Providers Care Grinder Machine Setter Name Role Phone Jessie Davies Primary Care Provider Reason for Visit * Reason Comments Follow Up Skin check- pt repor ts scaly like patches on her face she would like evaluated Encounter Details Date Type Department Care Team (Late st Contact Info) Description 08/04/2024 12:40 PM EDT Office Visit Dermatology [facility] [address] [facility] [place] [address] Fernanda Anglin PA-C [address] [facility] [place] [address] Skin exam, screening for cancer*; Skin tumor; [...] Health Care as noted on problem list. [facility] is a way you can talk to [...] 05/04/2025 9:00 AM EDT Office Visit Dermatology [facility] [address] [facility] [place] [address] Fernanda Anglin PA-C [address] [facility] [place] [address] Pending Results Name Type Priority Associated Diagnoses [...] this encounter Medical Devices Implanted Type Area Financial Retirement Plan Specialist Device Identifier Shelf Expiration Date Model / Serial / Lot Lens Intraoc 17.5 - [id number] - [id number] Implanted:Qty: 1 on 12/05/2020 by Evan Quinonez MD at OR [facility] Left: Eye BAUSCH [employer] LOMB 06/19/2025 [id number] / [id number] / [id number] Lens Intraoc 18.5 - [id number] - [id number] Implanted:Qty: 1 on 12/14/2020 by Evan Quinonez MD at OR [facility] Right: Eye BAUSCH & LOMB 07/19/2025 [id number] / [id number] / [id number] documented as of this encounter Visit Diagnoses Diagnosis Skin exam, screening for cancer- Primary Screening for malignant neoplasm of the skin Skin tumor Neoplasm of uncertain behavior of skin Diffuse photodamage of skin Other chronic dermatitis due to solar radiation History of nonmelanoma skin cancer Personal history of other malignant neoplasm of skin Actinic keratosis documented in this encounter Care Teams Grinder Machine Setter Relationship Specialty Start Date End Date Jessie Davies DO [address] [facility] [place] [address] PCP - General Family Medicine 12/05/18 documented as of this encounter
--- OUTSIDE RECORDS SUMMARY | 2024-10-12 18:34 | External Medical Summary | Summary of Care ---
Author Name Unknown Organization [facility] Address [address] [place] [address] Phone [phone] Care Team Providers Care Sandblast Operator Name Role Phone Jessie Davies DO Primary Care Provider Reason for Visit * Reason Onset Date Comments Health Maintenance 05/20/2024 Encounter Details Date Type Department Care Team (Late st Contact Info) Description 05/20/2024 Telephone Family Practice [facility] [address] [facility] [place] [address] Jessie Davies DO [address] [place] [address] Health Maintenance Allergies Active Allergy Reactions Criticality Noted Date Comments Bactrim Rash 10/05/2007 Ciprofloxacin 11/27/2020 Doxycycline 10/03/1997 rash Hepatitis B Virus Vaccines 03/29/2005 Flu symptoms Pertussis Vaccine Other (Please comment) 02/28/2011 Severe arthritis documented as of this encounter (statuses as of 06/28/2024) Medications Medication Sig Dispensed Refills Start Date [...] as of this encounter (statuses as of 06/28/2024) Active Problems Problem Noted Date Diagnosed Date Disorder of thyroid, unspecified 11/16/2021 Mixed hyperlipidemia 11/16/2021 Mixed rhinitis 09/10/2019 PND (post-nasal drip) 09/10/2019 Laryngopharyngeal reflux (LPR) 09/10/2019 Lingual tonsil hypertrophy 03/12/2018 Generalized OA 02/05/2012 Dyslipidemia 10/09/2009 Overview: Per Lipid Taxonomy. Gastroesophageal reflux disease with esophagitis 03/16/2004 documented as of this encounter (statuses as of 06/28/2024) Resolved Problems Problem Noted Date Diagnosed Date [...] as of this encounter (statuses as of 06/28/2024) Immunizations Name Administration Dates Next Due COVID-19 [...] Telephone Encounter - Stephani Oropeza LPN - 06/28/2024 1:36 PM EDT letter * Telephone Encounter - Stephani Oropeza LPN [...] done Colorectal Cancer Screening 02/08/2021 COVID-19 Vaccine ( season) 2023 Depression Screening 12/04/2023 Mammogram 12/25/2023 Lipid Panel 03/29/2024 Recapture Ov Mamm Lab dexa Care Gap Outreach Action Taken: Unable to reach and MyChart message sent documented in this encounter Plan of Treatment Upcoming Encounters Date Type Department Care Team (Late st Contact Info) Description 08/04/2024 12:40 PM EDT Office Visit Dermatology [facility] [place] [address] [place] [address] Fernanda Anglin PA-C [address] [place] [address] Scheduled Procedures Name Priority Associated Diagnoses Date/Ti [...] this encounter Medical Devices Implanted Type Area Heddler Device Identifier Shelf Expiration Date Model / Serial / Lot Lens Intraoc 17.5 - [id number] - [id number] Implanted:Qty: 1 on 12/05/2020 by Evan Quinonez MD at OR [facility] Left: Eye BAUSCH & LOMB 06/19/2025 [id number] / [id number] / [id number] Lens Intraoc 18.5 - [id number] - [id number] Implanted:Qty: 1 on 12/14/2020 by Evan Quinonez MD at OR [facility] Right: Eye BAUSCH & LOMB 07/19/2025 [id number] / [id number] / [id number] documented as of this encounter Care Teams Sandblast Operator Relationship Specialty Start Date End Date Jessie Davies DO [address] [place] [address] PCP - General Family Medicine 12/05/18 documented as of this encounter
--- NOTE | 2024-10-12 18:42 | Emergency Department Note ---
Impression & Plan COVID-19, Vomiting, Weakness, Head congestion ED Provider Note Provider: Cedric Paz MD CHIEF COMPLAINT: Fevers, fatigue, weakness, vomiting HISTORY OF PRESENT ILLNESS: Patient is a 69-year-old female presenting here tonight reporting she developed fevers, nasal congestion, fatigue, and vomiting starting this past night. Did take a COVID test at home that was positive today. Worsening significantly this afternoon with significant congestion of the nose that she cannot breathe through anymore. Having a bit of secretions and she is coughing having some vomiting. No diarrhea. No syncope but bodyaches and some slight headache. Reports use some herbal cough and cold medicine prior to arrival as well as ibuprofen around 2 PM but it has not helped much. States her temperature at home via ear thermometer was 103. No recent travel. Had COVID before several years ago and was not that ill with it at that time. Did have initial COVID-vaccine. Patient states she feels so thirsty but cannot keep anything down because she can only breathe through her mouth and not her nose. PAST MEDICAL HISTORY: As noted above MEDICATIONS: No current prescription SOCIAL HISTORY: Non-smoker PHYSICAL EXAM: GENERAL: alert and oriented in n fatigued in appearance laying on stretcher Head: normocephalic and atraumatic EYES: No injection, discharge or icterus. EOMI. NECK: Trachea midline. Supple with good range of motion ENT: Mucous membranes pink and moist. Pharynx without exudate, trace erythema. No trismus or uvular deviation. LUNGS: Airway patent. No retractions. Breath sounds clear HEART: Regular rate and rhythm. No chest wall tenderness ABDOMEN: Soft and non-tender, without guarding or rebound. SKIN: Acyanotic, warm, dry, without rashes EXTREMITIES: Without swelling or deformity NEUROLOGICAL: No focal deficits. No aphasia. No facial droop or slurred speech. Ambulatory. EK bpm normal sinus rhythm. No PVC or PAC. No acute ST segment elevation or depression with a QTc of 408. CONTINUOUS CARDIAC MONITORING: was ordered and showed a heart rate of 80s to 90s bpm in normal sinus rhythm Patient's laboratory studies and imaging reviewed. Differential includes Infection, dehydration, metabolic abnormality, hypo/hyperglycemia, electrolyte disturbance, anemia, hypoxia, cardiac sources, intracerebral event, toxicologic, neurologic, as well as other pathologies. IMPRESSION/MEDICAL DECISION MAKING: Patient COVID-positive at home likely driving many of her symptoms. Significant worsening from initial symptoms last night through this afternoon with myalgias and weakness. Not hypoxic here. Minimally short of breath. Will obtain chest x-ray however. Formal COVID/respiratory panel test ordered. Basic blood work ordered. EKG and troponin sent but less likely be cardiac in nature. No significant abdominal pain or tenderness and do not believe this represents acute GI pathologies as obstruction, cholecystitis, pancreatitis, or hepatitis. Given some IV fluids, Tylenol, Zofran, and a DuoNeb here to try to help with her symptoms. Urinalysis sent as well and negative for infection. Blood work without anemia or leukocytosis. No significant lecture light abnormality signs of renal dysfunction. Normal LFTs and troponin. No evidence of pancreatitis. Respiratory panel confirms COVID-19 infection. Reassessment patient and her son report that she has felt a little bit better. Bit unsteady getting up going to the bathroom. Oxygen level around 90%. Not desatting yet but only day 2 of illness. States she has had some depression issues with steroids in the past we will hold off as were not quite at the hypoxic level yet. Will give some Toradol to see if this can help with some headache and her myalgias. Discussion with her and her son given her age and weakness with only day 2 of illness as well as issues with intake due to vomiting and congestion, feel further observation is indicated. Hospitalist contacted. DIAGNOSIS: COVID-19, weakness, congestion, vomiting DISPOSITION: Hospitalist will evaluate Patient was agreeable with this plan. Past Med/Surg History Problem List (Updated 10/12/24 @ 20:58 by Cedric Pza M.D.) Head congestion (Acute) Weakness (Acute) Vomiting (Acute) COVID-19 (Acute) Medical History (Updated 10/12/24 @ 20:58 by Cedric Paz M.D.) No pertinent past medical history Family History (Updated 04/14/19 @ 20:02 by Tenzin Pulliam) Other No significant family history Social History Smoking Status: Never smoker Preferred Language: Persian Feels Safe at Home: Yes Allergies Allergies Allergy/AdvReac Type Severity Reaction Status Date / Time Sulfa (Sulfonamide Allergy Mild raised Verified 12/19/10 14:12 Antibiotics) burning rash trimethoprim Allergy Mild raised Verified 12/19/10 14:12 burning rash hepatitis B virus vaccine Allergy Unknown Verified 12/19/10 14:12 tetracycline Allergy Unknown Verified 12/19/10 14:12 Home Meds Home Medications Medication Instructions Recorded Confirmed Ascorbic Acid (Vitamin C *) 500 mg PO DAILY ##0 10/06/07 10/12/24 Ergocalciferol (Vitamin D Cap) 1 dose PO DAILY ##0 10/06/07 10/12/24 Ibuprofen (Advil) 200 - 600 mg PO Q4-6HR PRN ##0 10/06/07 10/12/24 Multivitamin 1 tab PO DAILY ##0 10/06/07 10/12/24 CoQ-10 100 mg QAM 10/12/24 10/12/24 Previous Rx's Medication Instructions Recorded meclizine 25 mg tablet 25 mg PO DAILY #30 tabs 04/14/19 Results & Data (ED) Vital Signs Vital Signs - 24 hr 10/12/24 18:33 10/12/24 19:06 10/12/24 19:17 Temperature 37.3 C Temperature Source Oral Pulse Rate 105 H 87 Pulse Rate [Apical] 88 Respiratory Rate 19 29 H Respiratory Effort / Characteristics Non-Labored Spontaneous Respiratory Depth Normal Blood Pressure 163/74 H Blood Pressure [Right Arm] 142/67 H Blood Pressure Mean 103 Blood Pressure Mean [Right Arm] 92 Blood Pressure Position Sitting Blood Pressure Position [Right Arm] Semi-fowlers Pulse Oximetry 91 97 Oxygen Delivery Method Room Air Room Air Sepsis Recent Fever Within 48 Hours Yes Sepsis New/Unexplained Change in Mental Status No Sepsis Action Taken by Nursing No Action Required Laboratory Data 10/12/24 19:10 10/12/24 19:10 Lab Results 10/12/24 10/12/24 Range/Units 19:10 20:40 WBC 8.47 (4.8-10.8) K/ul RBC 4.60 (4.20-5.40) M/uL Hgb 12.6 (12.0-16.0) g/dl Hct 38.8 (37.0-47.0) % MCV 84.3 (80.0-100.0) fL MCH 27.4 (25.0-34.0) pg MCHC 32.5 (32.0-36.0) g/dL RDW Std Deviation 43.1 (36.4-46.3) fL RDW Coeff of Rose 14.0 (11.5-14.5) % Plt Count 257 (130-400) K/uL MPV 9.6 (9.4-12.4) fL Immature Gran % (Auto) 0.4 % Neut % (Auto) 86.7 % Lymph % (Auto) 4.6 % Morrison % (Auto) 7.2 % Eos % (Auto) 0.6 % Baso % (Auto) 0.5 % Neut # (Auto) 7.35 H (1.40-6.50) K/uL Lymph # (Auto) 0.39 L (1.20-3.40) K/uL Morrison # (Auto) 0.61 H (0.11-0.59) K/uL Eos # (Auto) 0.05 (0.00-0.50) K/uL Baso # (Auto) 0.04 (0.00-0.20) K/uL Immature Gran # (Auto) 0.03 (0.01-0.20) K/uL Sodium 136 (136-145) mmol/L Potassium 3.7 (3.5-5.1) mmol/L Chloride 105 (98-107) mmol/L Carbon Dioxide 23 (21-32) mmol/L Anion Gap 8 (3-11) BUN 18 (6-23) mg/dl Creatinine 0.82 (0.6-1.2) mg/dl Est Cr Clr Drug Dosing 57.8 ml/min eGFR 76.43 BUN/Creatinine Ratio 22.0 H (10-20) Glucose 130 H (70-99(Fasting)) mg/dl Calcium 8.7 (8.6-10.3) mg/dl Magnesium 2.1 (1.7-2.4) mg/dl Total Bilirubin 0.5 (0.2-1.0) mg/dl AST 16 (13-39) U/L ALT 15 (7-52) U/L Alkaline Phosphatase 55 (34-104) U/L Troponin I High Sens 8.1 (0-14) pg/ml Total Protein 6.6 (6.0-8.3) gm/dl Albumin 4.0 (3.4-5.0) gm/dl Globulin 2.6 (2.5-4.0) gm/dl Albumin/Globulin Ratio 1.5 (0.9-2) Lipase 18 (11-82) U/L Urine Color Yellow Urine Appearance Turbid A (Clear) Urine pH >= 9.0 H (4.5-7.5) Ur Specific [place] 1.017 (1.000-1.030) Urine Protein Negative (Negative) Urine Glucose (UA) Negative (Negative) Urine Ketones Negative (Negative) Urine Blood Negative (Negative) Urine Nitrite Negative (Negative) Urine Bilirubin Negative (Negative) Urine Urobilinogen Negative (Negative) Ur Leukocyte Esterase Negative (Negative) Urine WBC (Auto) 0-5 (0-5) /hpf Urine RBC (Auto) 0-2 (0-2) /hpf U Hyaline Cast (Auto) 0-2 (0-2) /lpf U Epithel Cells (Auto) 0-2 (0-2) /hpf Urine Bacteria (Auto) None Seen (None Seen) Adenovirus (PCR) Not Detected (NotDetected) B. pertussis DNA (PCR) Not Detected (NotDetected) B.parapertussis DNA PCR Not Detected (NotDetected) C. pneumoniae DNA (PCR) Not Detected (NotDetected) Coronavirus OC43 (PCR) Not Detected (NotDetected) Coronavirus HKU1 (PCR) Not Detected (NotDetected) Coronavirus 229E (PCR) Not Detected (NotDetected) SARS-CoV-2 (PCR) DETECTED A (NotDetected) Coronavirus NL63 (PCR) Not Detected (NotDetected) Human Metapneumovir PCR Not Detected (NotDetected) Influenza Type A (PCR) Not Detected (NotDetected) Influenza Type B (PCR) Not Detected (NotDetected) M. pneumoniae (PCR) Not Detected (NotDetected) Parainfluenza 1 (PCR) Not Detected (NotDetected) Parainfluenza 2 (PCR) Not Detected (NotDetected) Parainfluenza 3 (PCR) Not Detected (NotDetected) Parainfluenza 4 (PCR) Not Detected (NotDetected) RSV (PCR) Not Detected (NotDetected) Entero/Rhino (PCR) Not Detected (NotDetected) Administered Medications Discontinued Medications Albuterol (Albut/Ipratrop 3mg/0.5mg Neb 3 Ml Vial) 3 ml NEB NOW STA; Protocol Stop: 10/12/24 18:52 Last Admin: 10/12/24 19:05 Dose: 3 ml Documented By: LIAM Sodium Chloride (Nss) 1,000 mls @ 999 mls/hr IV .Q1H1M ONE Stop: 10/12/24 19:51 Last Admin: 10/12/24 19:06 Dose: 999 mls/hr Documented By: MMF Acetaminophen (Ofirmev) 1,000 mg in 100 mls @ 400 mls/hr IV NOW STA Stop: 10/12/24 19:05 Last Infusion: 10/12/24 19:57 Dose: Infused Documented By: Admin: 10/12/24 19:06 Dose: 400 mls/hr Documented By: MMF Ketorolac Tromethamine (Ketorolac Tromethamine 15 Mg/Ml Vial) 10 mg IV NOW STA Stop: 10/12/24 20:36 Last Admin: 10/12/24 20:44 Dose: 10 mg Documented By: DORENE Ondansetron HCl (Ondansetron Inj 2 Mg/Ml 2 Ml Vial) 4 mg IV NOW STA Stop: 10/12/24 18:52 Last Admin: 10/12/24 19:06 Dose: 4 mg Documented By: MMF Imaging Data Radiologist's Impression: Chest X-Ray 10/12/24 18:42 Exam(s): XR CXR 1 VIEW EXAM: XR Chest, 1 View CLINICAL HISTORY: cough, covid. TECHNIQUE: Frontal view of the chest. COMPARISON: Chest 2 views 02/10/2014 FINDINGS: Lungs: The pulmonary vasculature appears somewhat equalized. There are diffuse reticulonodular interstitial opacities, most prominent in the mid to lower lung zones. Subsegmental changes noted involving the infrahilar regions bilaterally are new. Pleural space: Unremarkable. No pneumothorax. No large pleural effusion. Heart: Unremarkable. No cardiomegaly. Mediastinum: The mediastinal contours are stable and unremarkable. No tracheal deviation. Bones/joints: Unremarkable. No acute fracture. IMPRESSION: 1. The pulmonary vasculature appears somewhat equalized. There are diffuse reticulonodular interstitial opacities, most prominent in the mid to lower lung zones. Differential considerations include asymmetric interstitial edema versus interstitial infection, to include atypical bacterial and viral etiologies. No pleural effusion or pneumothorax. 2. Subsegmental changes noted involving the infrahilar regions bilaterally are new. This may represent confluence of vascular structures or subsegmental atelectasis. Electronically signed by: Alex Driver MD 10/12/24 21:22 PM Discharge Plan Visit Data Chief Complaint: Fever Stated Complaint: COVID, FEVER 103, VOMITING, NAUSEA, NOT EATING ED Provider: Cedric Paz Discharge Problem: COVID-19, Vomiting, Weakness, Head congestion Patient Disposition: Being Evaluated by Hospitalist Forms Stand Alone Forms: [facility] Prescriptions Prescriptions: No Action Ascorbic Acid (Vitamin C *) 500 MG tablet 500 mg PO DAILY Qty: 0 Ergocalciferol (Vitamin D Cap) 50,000 INTERUNIT capsule 1 dose PO DAILY Qty: 0 Ibuprofen (Advil) 200 MG tablet 200 - 600 mg PO Q4-6HR PRN Qty: 0 Multivitamin tablet 1 tab PO DAILY Qty: 0 meclizine 25 mg tablet 25 mg PO DAILY Qty: 30 0RF CoQ-10 100 mg QAM Referrals Referrals: Jessie Davies DO [Primary Care Provider] -
[2024-10-12] MEDS: ALBUT/IPRATROP 3MG/0.5MG NEB 3 ML VIAL NEB STA (19:05)
[2024-10-12] MEDS: SODIUM CHLORIDE 0.9% 1,000 ML IV ONE (19:06)
[2024-10-12] MEDS: ACETAMINOPHEN 1,000 MG/100 ML VIAL IV STA (19:06)
[2024-10-12] MEDS: ONDANSETRON INJ 2 MG/ML 2 ML VIAL IV STA (19:06)
[2024-10-12 19:28] LABS: Basophils # (auto) 0.04 K/uL (0.00-0.20); Basophils % (auto) 0.5 %; Eosinophils # (auto) 0.05 K/uL (0.00-0.50); Eosinophils % (auto) 0.6 %; Hematocrit (blood only) 38.8 % (37.0-47.0); Hemoglobin 12.6 g/dl (12.0-16.0); Immature Granulocytes # (auto) 0.03 K/uL (0.01-0.20); Immature Granulocytes % (auto) 0.4 %; Lymphocytes # (auto) 0.39 K/uL (1.20-3.40); Lymphocytes % (auto) 4.6 %; Mean Corpuscular Hemoglobin 27.4 pg (25.0-34.0); Mean Corpuscular Hgb Conc 32.5 g/dL (32.0-36.0); Mean Corpuscular Volume 84.3 fL (80.0-100.0); Mean Platelet Volume 9.6 fL (9.4-12.4); Monocytes # (auto) 0.61 K/uL (0.11-0.59); Monocytes % (auto) 7.2 %; Neutrophils # (auto) 7.35 K/uL (1.40-6.50); Neutrophils % (auto) 86.7 %; Platelet Count 257 K/uL (130-400); RDW Standard Deviation 43.1 fL (36.4-46.3); White Blood Count 8.47 K/ul (4.8-10.8)
[2024-10-12 19:47] LABS: Albumin Globulin Ratio 1.5 (0.9-2); Bilirubin,Total 0.5 mg/dl (0.2-1.0); Calcium 8.7 mg/dl (8.6-10.3); Creatinine Clr Calc Pharmacy 57.8 ml/min; Globulin 2.6 gm/dl (2.5-4.0); Magnesium 2.1 mg/dl (1.7-2.4); Potassium 3.7 mmol/L (3.5-5.1); Total Protein 6.6 gm/dl (6.0-8.3)
[2024-10-12 19:52] LABS: Troponin I High Sensitivity 8.1 pg/ml (0-14)
[2024-10-12 20:18] LABS: Adenovirus PCR Not Detected (NotDetected); Bordetella parapertussis PCR Not Detected (NotDetected); Bordetella pertussis PCR Not Detected (NotDetected); Chlamydia pneumoniae PCR Not Detected (NotDetected); Coronavirus 229E PCR Not Detected (NotDetected); Coronavirus CoV-2 (COVID19)PCR DETECTED (NotDetected); Coronavirus HKU1 PCR Not Detected (NotDetected); Coronavirus NL63 PCR Not Detected (NotDetected); Coronavirus OC43PCR Not Detected (NotDetected); Human Metapneumovirus PCR Not Detected (NotDetected); Influenza A PCR Not Detected (NotDetected); Influenza B PCR Not Detected (NotDetected); Mycoplasma pneumoniae PCR Not Detected (NotDetected); Parainfluenza Virus 1 PCR Not Detected (NotDetected); Parainfluenza Virus 2 PCR Not Detected (NotDetected); Parainfluenza Virus 3 PCR Not Detected (NotDetected); Parainfluenza Virus 4 PCR Not Detected (NotDetected); Respiratory Syncytial VirusPCR Not Detected (NotDetected); Rhinovirus/Enterovirus PCR Not Detected (NotDetected)
[2024-10-12] MEDS: KETOROLAC TROMETHAMINE 15 MG/ML VIAL IV STA (20:44)
[2024-10-12 20:55] LABS: Appearance Urine Turbid (Clear); Bacteria Urine Automated None Seen (None Seen); Bilirubin Urine Negative (Negative); Blood Urine Negative (Negative); Cast Urine Automated 0-2 /lpf (0-2); Color Urine Yellow; Epithelial Cell Urine Auto 0-2 /hpf (0-2); Glucose Urine UA Negative (Negative); Ketones Urine Negative (Negative); Leukocyte Esterase Urine Negative (Negative); Nitrite Urine Negative (Negative); Protein Urine Negative (Negative); RBC Urine Automated 0-2 /hpf (0-2); Specific Gravity Urine 1.017 (1.000-1.030); Urobilinogen Urine Negative (Negative); WBC Urine Automated 0-5 /hpf (0-5); pH Urine >= 9.0 (4.5-7.5)
--- NOTE | 2024-10-12 21:23 | XRay Report ---
Exam(s): XR CXR 1 VIEW EXAM: XR Chest, 1 View CLINICAL HISTORY: cough, covid. TECHNIQUE: Frontal view of the chest. COMPARISON: Chest 2 views 02/10/2014 FINDINGS: Lungs: The pulmonary vasculature appears somewhat equalized. There are diffuse reticulonodular interstitial opacities, most prominent in the mid to lower lung zones. Subsegmental changes noted involving the infrahilar regions bilaterally are new. Pleural space: Unremarkable. No pneumothorax. No large pleural effusion. Heart: Unremarkable. No cardiomegaly. Mediastinum: The mediastinal contours are stable and unremarkable. No tracheal deviation. Bones/joints: Unremarkable. No acute fracture. IMPRESSION: 1. The pulmonary vasculature appears somewhat equalized. There are diffuse reticulonodular interstitial opacities, most prominent in the mid to lower lung zones. Differential considerations include asymmetric interstitial edema versus interstitial infection, to include atypical bacterial and viral etiologies. No pleural effusion or pneumothorax. 2. Subsegmental changes noted involving the infrahilar regions bilaterally are new. This may represent confluence of vascular structures or subsegmental atelectasis. Electronically signed by: Alex Driver MD 10/12/24 21:22 PM
--- NOTE | 2024-10-13 01:04 | History & Physical Report ---
Date of Service October 13, 2024 Assessment & Plan (1) COVID-19: Plan: 69-year-old female with past medical history significant for hyperlipidemia, history of mixed rhinitis, laryngopharyngeal reflux, GERD, generalized osteoarthritis presents with nasal congestion, fever and cough and found to have COVID and chest x-ray showing possible pneumonia. Patient says last night she started to have stuffy nose and cough. Symptoms got worse today. She had a temperature of 103 degrees at home. Having nausea. Has headache. Has Body aches. Appetite is okay. Denies chest pain or shortness of breath. No abdominal pain. Normal bowel and bladder movements. Hemodynamics are okay. Oxygen saturation low 90s. COVID-19 Possible pneumonia on chest x-ray Oxygen low 90s Will place on remdesivir and follow remdesivir labs COVID precautions Patient says she will not tolerate steroids well we will hold them for now Nebs as needed Close monitor DVT prophylaxis Lovenox Disposition Med/telemetry History of Present Illness Chief Complaint: COVID pneumonia Primary Care Provider: Jessie Davies DO 69-year-old female with past medical history significant for hyperlipidemia, history of mixed rhinitis, laryngopharyngeal reflux, GERD, generalized osteoarthritis presents with nasal congestion, fever and cough and found to have COVID and chest x-ray showing possible pneumonia. Patient says last night she started to have stuffy nose and cough. Symptoms got worse today. She had a temperature of 103 degrees at home. Having nausea. Has headache. Has Body aches. Appetite is okay. Denies chest pain or shortness of breath. No abdominal pain. Normal bowel and bladder movements. Hemodynamics are okay. Oxygen saturation low 90s. Past med history. As mentioned above Past surgical history. Colonoscopy. EGD with biopsy. Removal of tonsils. Bilateral cataracts. Social history. . No smoking. No alcohol use. No drug use. Family history. Mother had basal cell carcinoma. Thyroid disorder. Father had dementia. Prostate cancer. Stroke. Sister had a von Willebrand's Allergies Allergy/AdvReac Type Severity Reaction Status Date / Time Sulfa (Sulfonamide Allergy Mild raised Verified 12/19/10 14:12 Antibiotics) burning rash trimethoprim Allergy Mild raised Verified 12/19/10 14:12 burning rash hepatitis B virus vaccine Allergy Unknown Verified 12/19/10 14:12 tetracycline Allergy Unknown Verified 12/19/10 14:12 Home Medications Medication Instructions Recorded Confirmed Type Ascorbic Acid (Vitamin C *) 500 mg PO DAILY ##0 10/06/07 10/12/24 History Ergocalciferol (Vitamin D Cap) 1 dose PO DAILY ##0 10/06/07 10/12/24 History Ibuprofen (Advil) 200 - 600 mg PO Q4-6HR PRN ##0 10/06/07 10/12/24 History Multivitamin 1 tab PO DAILY ##0 10/06/07 10/12/24 History meclizine 25 mg tablet 25 mg PO DAILY #30 tabs 04/14/19 10/12/24 Rx CoQ-10 100 mg QAM 10/12/24 10/12/24 History Past Med/Surg History Problem List (Updated 10/12/24 @ 20:58 by Cedric Paz M.D.) Head congestion (Acute) Weakness (Acute) Vomiting (Acute) COVID-19 (Acute) Medical History (Updated 10/12/24 @ 20:58 by Cedric Paz M.D.) No pertinent past medical history Family History (Updated 04/14/19 @ 20:02 by Tenzin Pulliam) Other No significant family history Social History Smoking Status: Never smoker Hx Alcohol Use: No Hx Substance Use: No Preferred Language: Panamanian Communication Ability: Effective Blank Driller Required: No Beliefs That Will Affect Care: None Current Living Situation: Family Feels Safe at Home: Yes Safety Concerns: Feels Safe At This Time Review of Systems Review of Systems: All systems reviewed & are unremarkable except as noted in HPI & below Physical Exam Physical Exam: General-Not in acute distress Head- atraumatic Eyes- PERRL. ENT- oropharynx clear Neck- supple, no JVD. Lungs- clear to auscultation no wheezing or crackles Heart- regular rate and rhythm; no murmur, no gallop. Abdomen- normal bowel sounds, soft, nontender, no distension Extremities- no pretibial edema, no erythema seen Neuro- alert, oriented PERRL, no facial palsy; no dysarthria; moves extremities Results & Data Results & Data Vital Signs (Past 12 Hours) Vital Signs Temp Pulse Pulse Resp BP BP Pulse Ox 10/13/24 00:06 65 18 111/54 L 93 10/12/24 23:03 80 18 117/54 L 93 10/12/24 23:03 76 10/12/24 21:00 98 H 25 H 137/83 93 10/12/24 19:17 88 29 H 142/67 H 97 10/12/24 19:06 87 10/12/24 18:33 37.3 C 105 H 19 163/74 H 91 O2 Del Method 10/13/24 00:06 Room Air 10/12/24 23:03 Room Air 10/12/24 23:03 10/12/24 21:00 Room Air 10/12/24 19:17 Room Air 10/12/24 19:06 10/12/24 18:33 Room Air Diagnostic Findings Laboratory Results WBC 8.47 K/ul (4.8-10.8) 10/12/24 19:10 RBC 4.60 M/uL (4.20-5.40) 10/12/24 19:10 Hgb 12.6 g/dl (12.0-16.0) 10/12/24 19:10 Hct 38.8 % (37.0-47.0) 10/12/24 19:10 MCV 84.3 fL (80.0-100.0) 10/12/24 19:10 MCH 27.4 pg (25.0-34.0) 10/12/24 19:10 MCHC 32.5 g/dL (32.0-36.0) 10/12/24 19:10 RDW Std Deviation 43.1 fL (36.4-46.3) 10/12/24 19:10 RDW Coeff of Rose 14.0 % (11.5-14.5) 10/12/24 19:10 Plt Count 257 K/uL (130-400) 10/12/24 19:10 MPV 9.6 fL (9.4-12.4) 10/12/24 19:10 Immature Gran % (Auto) 0.4 % 10/12/24 19:10 Neut % (Auto) 86.7 % 10/12/24 19:10 Lymph % (Auto) 4.6 % 10/12/24 19:10 Creek % (Auto) 7.2 % 10/12/24 19:10 Eos % (Auto) 0.6 % 10/12/24 19:10 Baso % (Auto) 0.5 % 10/12/24 19:10 Neut # (Auto) 7.35 K/uL (1.40-6.50) H 10/12/24 19:10 Lymph # (Auto) 0.39 K/uL (1.20-3.40) L 10/12/24 19:10 Creek # (Auto) 0.61 K/uL (0.11-0.59) H 10/12/24 19:10 Eos # (Auto) 0.05 K/uL (0.00-0.50) 10/12/24 19:10 Baso # (Auto) 0.04 K/uL (0.00-0.20) 10/12/24 19:10 Immature Gran # (Auto) 0.03 K/uL (0.01-0.20) 10/12/24 19:10 Sodium 136 mmol/L (136-145) 10/12/24 19:10 Potassium 3.7 mmol/L (3.5-5.1) 10/12/24 19:10 Chloride 105 mmol/L (98-107) 10/12/24 19:10 Carbon Dioxide 23 mmol/L (21-32) 10/12/24 19:10 Anion Gap 8 (3-11) 10/12/24 19:10 BUN 18 mg/dl (6-23) 10/12/24 19:10 Creatinine 0.82 mg/dl (0.6-1.2) 10/12/24 19:10 Est Cr Clr Drug Dosing 57.8 ml/min 10/12/24 19:10 eGFR 76.43 10/12/24 19:10 BUN/Creatinine Ratio 22.0 (10-20) H 10/12/24 19:10 Glucose 130 mg/dl (70-99(Fasting)) H 10/12/24 19:10 Calcium 8.7 mg/dl (8.6-10.3) 10/12/24 19:10 Magnesium 2.1 mg/dl (1.7-2.4) 10/12/24 19:10 Total Bilirubin 0.5 mg/dl (0.2-1.0) 10/12/24 19:10 AST 16 U/L (13-39) 10/12/24 19:10 ALT 15 U/L (7-52) 10/12/24 19:10 Alkaline Phosphatase 55 U/L (34-104) 10/12/24 19:10 Troponin I High Sens 8.1 pg/ml (0-14) 10/12/24 19:10 Total Protein 6.6 gm/dl (6.0-8.3) 10/12/24 19:10 Albumin 4.0 gm/dl (3.4-5.0) 10/12/24 19:10 Globulin 2.6 gm/dl (2.5-4.0) 10/12/24 19:10 Albumin/Globulin Ratio 1.5 (0.9-2) 10/12/24 19:10 Lipase 18 U/L (11-82) 10/12/24 19:10 Urine Color Yellow 10/12/24 20:40 Urine Appearance Turbid (Clear) A 10/12/24 20:40 Urine pH >= 9.0 (4.5-7.5) H 10/12/24 20:40 Ur Specific [place] 1.017 (1.000-1.030) 10/12/24 20:40 Urine Protein Negative (Negative) 10/12/24 20:40 Urine Glucose (UA) Negative (Negative) 10/12/24 20:40 Urine Ketones Negative (Negative) 10/12/24 20:40 Urine Blood Negative (Negative) 10/12/24 20:40 Urine Nitrite Negative (Negative) 10/12/24 20:40 Urine Bilirubin Negative (Negative) 10/12/24 20:40 Urine Urobilinogen Negative (Negative) 10/12/24 20:40 Ur Leukocyte Esterase Negative (Negative) 10/12/24 20:40 Urine WBC (Auto) 0-5 /hpf (0-5) 10/12/24 20:40 Urine RBC (Auto) 0-2 /hpf (0-2) 10/12/24 20:40 U Hyaline Cast (Auto) 0-2 /lpf (0-2) 10/12/24 20:40 U Epithel Cells (Auto) 0-2 /hpf (0-2) 10/12/24 20:40 Urine Bacteria (Auto) None Seen (None Seen) 10/12/24 20:40 Adenovirus (PCR) Not Detected (NotDetected) 10/12/24 19:10 B. pertussis DNA (PCR) Not Detected (NotDetected) 10/12/24 19:10 B.parapertussis DNA PCR Not Detected (NotDetected) 10/12/24 19:10 C. pneumoniae DNA (PCR) Not Detected (NotDetected) 10/12/24 19:10 Coronavirus OC43 (PCR) Not Detected (NotDetected) 10/12/24 19:10 Coronavirus HKU1 (PCR) Not Detected (NotDetected) 10/12/24 19:10 Coronavirus 229E (PCR) Not Detected (NotDetected) 10/12/24 19:10 SARS-CoV-2 (PCR) DETECTED (NotDetected) A 10/12/24 19:10 Coronavirus NL63 (PCR) Not Detected (NotDetected) 10/12/24 19:10 Human Metapneumovir PCR Not Detected (NotDetected) 10/12/24 19:10 Influenza Type A (PCR) Not Detected (NotDetected) 10/12/24 19:10 Influenza Type B (PCR) Not Detected (NotDetected) 10/12/24 19:10 M. pneumoniae (PCR) Not Detected (NotDetected) 10/12/24 19:10 Parainfluenza 1 (PCR) Not Detected (NotDetected) 10/12/24 19:10 Parainfluenza 2 (PCR) Not Detected (NotDetected) 10/12/24 19:10 Parainfluenza 3 (PCR) Not Detected (NotDetected) 10/12/24 19:10 Parainfluenza 4 (PCR) Not Detected (NotDetected) 10/12/24 19:10 RSV (PCR) Not Detected (NotDetected) 10/12/24 19:10 Entero/Rhino (PCR) Not Detected (NotDetected) 10/12/24 19:10 Impressions Chest X-Ray 10/12/24 18:42 Exam(s): XR CXR 1 VIEW EXAM: XR Chest, 1 View CLINICAL HISTORY: cough, covid. TECHNIQUE: Frontal view of the chest. COMPARISON: Chest 2 views 02/10/2014 FINDINGS: Lungs: The pulmonary vasculature appears somewhat equalized. There are diffuse reticulonodular interstitial opacities, most prominent in the mid to lower lung zones. Subsegmental changes noted involving the infrahilar regions bilaterally are new. Pleural space: Unremarkable. No pneumothorax. No large pleural effusion. Heart: Unremarkable. No cardiomegaly. Mediastinum: The mediastinal contours are stable and unremarkable. No tracheal deviation. Bones/joints: Unremarkable. No acute fracture. IMPRESSION: 1. The pulmonary vasculature appears somewhat equalized. There are diffuse reticulonodular interstitial opacities, most prominent in the mid to lower lung zones. Differential considerations include asymmetric interstitial edema versus interstitial infection, to include atypical bacterial and viral etiologies. No pleural effusion or pneumothorax. 2. Subsegmental changes noted involving the infrahilar regions bilaterally are new. This may represent confluence of vascular structures or subsegmental atelectasis. Electronically signed by: Alex Driver MD 10/12/24 21:22 PM ECG Additional Comments: ECG. Normal sinus rhythm rate of 88. No acute ST changes seen. Code Status & VTE Plan VTE Prophylaxis Plan VTE Prophylaxis will be ordered: Yes
[2024-10-13] MEDS ORDERED: NITROGLYCERIN SL 0.4 MG/TAB TAB SL PRN (01:11)
[2024-10-13] MEDS: SODIUM CHLORIDE 0.9% 1,000 ML IV SCH (01:42)
[2024-10-13] MEDS: OXYMETAZOLINE 0.05% 30 ML BTL ONE (01:42)
[2024-10-13] MEDS: REMDESIVIR 200 MG in SODIUM CHLORIDE 0.9% 210 ML IV STA (02:05)
[2024-10-13] MEDS: KETOROLAC TROMETHAMINE 15 MG/ML VIAL IV ONE (02:44)
[2024-10-13 04:50] LABS: Albumin Level 3.3 gm/dl (3.4-5.0); Bilirubin,Total 0.3 mg/dl (0.2-1.0); Total Protein 5.5 gm/dl (6.0-8.3)
[2024-10-13] MEDS: ENOXAPARIN INJ 40 MG/0.4 ML SYR SQ SCH (06:02)
[2024-10-13 07:30] LABS: Basophils # (auto) 0.04 K/uL (0.00-0.20); Basophils % (auto) 0.6 %; Eosinophils # (auto) 0.01 K/uL (0.00-0.50); Eosinophils % (auto) 0.1 %; Hematocrit (blood only) 34.6 % (37.0-47.0); Hemoglobin 11.3 g/dl (12.0-16.0); Immature Granulocytes # (auto) 0.02 K/uL (0.01-0.20); Immature Granulocytes % (auto) 0.3 %; Lymphocytes % (auto) 16.1 %; Mean Corpuscular Hgb Conc 32.7 g/dL (32.0-36.0); Mean Corpuscular Volume 85.9 fL (80.0-100.0); Mean Platelet Volume 10.1 fL (9.4-12.4); Monocytes # (auto) 0.65 K/uL (0.11-0.59); Monocytes % (auto) 9.5 %; Neutrophils % (auto) 73.4 %; Platelet Count 215 K/uL (130-400); RDW Coefficient of Variation 14.2 % (11.5-14.5); RDW Standard Deviation 44.4 fL (36.4-46.3); Red Blood Count 4.03 M/uL (4.20-5.40); White Blood Count 6.82 K/ul (4.8-10.8)
[2024-10-13 07:39] LABS: BUN Creatinine Ratio 28.1 (10-20); Calcium 8.3 mg/dl (8.6-10.3); Creatinine Clr Calc Pharmacy 74.1 ml/min; Magnesium 2.2 mg/dl (1.7-2.4); Potassium 3.9 mmol/L (3.5-5.1)
[2024-10-13 07:57] LABS: Troponin I High Sensitivity 14.6 pg/ml (0-14)
[2024-10-13] MEDS: ACETAMINOPHEN 325 MG TAB PO PRN (08:12)
[2024-10-13] MEDS: MULTIVITAMIN TAB PO SCH (08:28)
[2024-10-13] MEDS: FLUTICASONE PROPIONATE NA SPR 16 GM BTL SCH (08:29)
[2024-10-13] MEDS: ASCORBIC ACID 500 MG TAB PO SCH (08:29)
[2024-10-13] MEDS: SODIUM CHLORIDE 0.65% NA SOLN 45 ML (OCEAN) SCH (08:30)
--- NOTE | 2024-10-13 09:23 | Electrocardiogram Report ---
Test Reason : Blood Pressure : */* mmHG Vent. Rate : 88 BPM Atrial Rate : 88 BPM P-R Int : 144 ms QRS Dur : 64 ms QT Int : 338 ms P-R-T Axes : 60 18 29 degrees QTcB Int : 408 ms Normal sinus rhythm Possible Old Anterior infarct (cited on or before 14-Apr-2019) Abnormal ECG When compared with ECG of 14-Apr-2019 19:28, Vent. rate has increased by 30 bpm Confirmed by Francisco Granados ([id number]) on 10/13/2024 9:22:49 AM Referred By: REFERRED SELF Confirmed By: Francisco Granados
[2024-10-13] MEDS: LEVALBUTEROL 1.25 MG/3 ML NEB NEB PRN (18:19)
--- NOTE | 2024-10-13 19:17 | Communication Note ---
Date of Service: October 13, 2024 69-year-old female with past medical history significant for hyperlipidemia, history of mixed rhinitis, laryngopharyngeal reflux, GERD, generalized oste oarthritis presents with nasal congestion, fever and cough for about 1 day and found to have COVID 19 infection and chest x-ray showing possible pneumonia. She had a temperature of 103 degrees at home. Denies chest pain or shortness of breath. She is being managed for the following: COVID-19 Possible pneumonia on chest x-ray Oxygen low 90s At presentation. Continue with remdesivir. COVID precautions. Patient states that she does not tolerate steroids/she gets delirious on steroid and would like to hold on starting steroid for now but ok w/ steroid if needing high level of O2. Nebs as needed, Continue with incentive spirometer. Close monitor DVT prophylaxis: Lovenox Disposition: Med/telemetry For detailed information on the patient, reported today's H&P note.
[2024-10-13] MEDS: REMDESIVIR 100 MG in SODIUM CHLORIDE 0.9% 230 ML IV SCH (19:35)
[2024-10-13] MEDS: FAMOTIDINE 20MG IV PUSH 20 MG/5 ML SYR IV STA (22:36)
[2024-10-13] MEDS: LORazepam 0.5 MG TAB PO STA (23:12)
[2024-10-14 06:10] LABS: Hematocrit (blood only) 33.3 % (37.0-47.0); Hemoglobin 10.7 g/dl (12.0-16.0); Mean Corpuscular Hemoglobin 27.7 pg (25.0-34.0); Mean Corpuscular Hgb Conc 32.1 g/dL (32.0-36.0); Mean Corpuscular Volume 86.3 fL (80.0-100.0); Mean Platelet Volume 9.9 fL (9.4-12.4); Platelet Count 192 K/uL (130-400); RDW Coefficient of Variation 14.3 % (11.5-14.5); RDW Standard Deviation 45.1 fL (36.4-46.3); Red Blood Count 3.86 M/uL (4.20-5.40)
[2024-10-14 06:45] LABS: Calcium 8.1 mg/dl (8.6-10.3); Potassium 3.9 mmol/L (3.5-5.1)
[2024-10-14 06:48] LABS: BUN Creatinine Ratio 26.7 (10-20); Creatinine Clr Calc Pharmacy 78.9 ml/min
[2024-10-14] MEDS: FAMOTIDINE 20 MG TAB PO SCH (07:46)
--- NOTE | 2024-10-14 16:41 | Hospitalist Progress Note ---
Date of Service October 14, 2024 Assessment & Plan (1) COVID-19: Plan 69-year-old female with past medical history significant for hyperlipidemia, history of mixed rhinitis, laryngopharyngeal reflux, GERD, generalized osteoarthritis presents with nasal congestion, fever and cough for about 1 day and found to have COVID 19 infection and chest x-ray showing possible pneumonia. She had a temperature of 103 degrees at home. Denies chest pain or shortness of breath. She is being managed for the following: COVID-19 Possible pneumonia on chest x-ray Possible bronchitis Oxygen low 90s At presentation. Continue with remdesivir. COVID precautions. Patient states that she does not tolerate steroids/she gets delirious on steroid and would like to hold on starting steroid for now. Nebs as needed, Continue with incentive spirometer. Pt w/ yellow green sputum, will do 5 day course of azithro for bronchitis Close monitor DVT prophylaxis: Lovenox Disposition: Med/telemetry. pt/ot. Admission and Anticipated Discharge Date Admission Date: October 13, 2024 Subjective Patient was seen and examined at bedside. Patient was lying in bed, on 1 L oxygen, NAD. Patient reports feeling tired, reports cough slightly improving, denies abdominal pain or diarrhea. Patient still does not want to be on steroid and would like to see how she improves on remdesivir alone at this point. Physical Exam Physical Exam: General-Not in acute distress, On 1 L oxygen via nasal cannula. Head- atraumatic Eyes- PERRL. ENT- oropharynx clear Neck- supple, no JVD. Lungs- clear to auscultation no wheezing or crackles Heart- regular rate and rhythm; no murmur, no gallop. Abdomen- normal bowel sounds, soft, nontender, no distension Extremities- no pretibial edema, no erythema seen Neuro- alert, oriented PERRL, no facial palsy; no dysarthria; moves extremities Results & Data Results & Data Vital Signs (Past 12 Hours) Vital Signs Temp Pulse Pulse Resp BP Pulse Ox O2 Del Method 10/14/24 15:39 36.7 C 65 20 124/81 95 Nasal Cannula 10/14/24 13:00 73 10/14/24 12:11 36.4 C L 64 18 110/68 96 Room Air 10/14/24 09:12 Nasal Cannula 10/14/24 07:14 36.8 C 75 18 134/71 94 Nasal Cannula 10/14/24 05:36 64 O2 Flow Rate 10/14/24 15:39 1 10/14/24 13:00 10/14/24 12:11 10/14/24 09:12 1 10/14/24 07:14 1 10/14/24 05:36
[2024-10-14] MEDS: AZITHROMYCIN 250 MG TAB PO ONE (17:19)
[2024-10-14] MEDS: LORazepam 0.5 MG TAB PO STA (23:22)
[2024-10-15] MEDS: MoRPHine SULFATE 2 MG/ML CARP IV STA (05:39)
[2024-10-15 07:06] LABS: Hematocrit (blood only) 35.9 % (37.0-47.0); Hemoglobin 11.7 g/dl (12.0-16.0); Mean Corpuscular Hemoglobin 27.5 pg (25.0-34.0); Mean Corpuscular Hgb Conc 32.6 g/dL (32.0-36.0); Mean Corpuscular Volume 84.5 fL (80.0-100.0); Platelet Count 219 K/uL (130-400); RDW Coefficient of Variation 14.2 % (11.5-14.5); Red Blood Count 4.25 M/uL (4.20-5.40); White Blood Count 7.19 K/ul (4.8-10.8)
[2024-10-15 07:30] LABS: BUN Creatinine Ratio 20.9 (10-20); Calcium 8.6 mg/dl (8.6-10.3); Creatinine Clr Calc Pharmacy 70.5 ml/min; Phosphorus 3.2 mg/dl (2.5-4.9); Potassium 3.9 mmol/L (3.5-5.1)
[2024-10-15] MEDS: AZITHROMYCIN 250 MG TAB PO SCH (11:02)
--- NOTE | 2024-10-15 16:51 | Hospitalist Progress Note ---
Date of Service October 15, 2024 Assessment & Plan (1) COVID-19: Plan 69-year-old female with past medical history significant for hyperlipidemia, history of mixed rhinitis, laryngopharyngeal reflux, GERD, generalized osteoarthritis presents with nasal congestion, fever and cough for about 1 day and found to have COVID 19 infection and chest x-ray showing possible pneumonia. She had a temperature of 103 degrees at home. Denies chest pain or shortness of breath. She is being managed for the following: COVID-19 Possible pneumonia on chest x-ray Possible bronchitis Oxygen low 90s At presentation. Continue with remdesivir. COVID precautions. Patient states that she does not tolerate steroids/she gets delirious on steroid and would like to hold on starting steroid for now. Nebs as needed, Continue with incentive spirometer. Pt w/ yellow green sputum, now getting laboratory specialist in [place]. c/w azithro 10/14. Close monitor DVT prophylaxis: Lovenox Disposition: Med/telemetry. pt/ot. Admission and Anticipated Discharge Date Admission Date: October 13, 2024 Subjective Patient was seen and examined at bedside. Patient was lying in bed, on 1 L oxygen, NAD. Patient reports feeling tired, reports cough slightly improving, reports color of the sputum getting laboratory specialist, denies abdominal pain or diarrhea. Patient still does not want to be on steroid and would like to see how she improves on remdesivir alone at this point. Patient feels tired today and would like to see how she does today. Physical Exam Physical Exam: General-Not in acute distress, On 1 L oxygen via nasal cannula. Head- atraumatic Eyes- PERRL. ENT- oropharynx clear Neck- supple, no JVD. Lungs- clear to auscultation no wheezing or crackles Heart- regular rate and rhythm; no murmur, no gallop. Abdomen- normal bowel sounds, soft, nontender, no distension Extremities- no pretibial edema, no erythema seen Neuro- alert, oriented PERRL, no facial palsy; no dysarthria; moves extremities Results & Data Results & Data Vital Signs (Past 12 Hours) Vital Signs Temp Pulse Resp BP BP Pulse Ox Pulse Ox 10/15/24 12:30 36.7 C 78 15 127/73 96 10/15/24 12:15 95 10/15/24 08:15 37.2 C 67 16 126/72 95 O2 Del Method O2 Flow Rate O2 Flow Rate 10/15/24 12:30 Room Air 10/15/24 12:15 0 10/15/24 08:15 Nasal Cannula 1
[2024-10-15] MEDS: MELATONIN 3 MG TAB PO PRN (20:19)
[2024-10-16 04:55] LABS: Hematocrit (blood only) 36.7 % (37.0-47.0); Hemoglobin 11.9 g/dl (12.0-16.0); Mean Corpuscular Hemoglobin 27.5 pg (25.0-34.0); Mean Corpuscular Hgb Conc 32.4 g/dL (32.0-36.0); Platelet Count 231 K/uL (130-400); RDW Standard Deviation 43.7 fL (36.4-46.3); Red Blood Count 4.32 M/uL (4.20-5.40); White Blood Count 4.87 K/ul (4.8-10.8)
[2024-10-16 05:12] LABS: BUN Creatinine Ratio 25.7 (10-20); Calcium 8.6 mg/dl (8.6-10.3); Creatinine Clr Calc Pharmacy 67.5 ml/min
[2024-10-16] MEDS: AMOXICILLIN/CLAVULANATE 875 MG TAB PO SCH (13:29)
[2024-10-16] MEDS: ADVANCED PROBIOTIC 625 MG CAPSULE PO SCH (13:30)
--- NOTE | 2024-10-16 16:13 | Hospitalist Progress Note ---
Date of Service October 16, 2024 Assessment & Plan (1) COVID-19: Plan 69-year-old female with past medical history significant for hyperlipidemia, history of mixed rhinitis, laryngopharyngeal reflux, GERD, generalized osteoarthritis presents with nasal congestion, fever and cough for about 1 day and found to have COVID 19 infection and chest x-ray showing possible pneumonia. She had a temperature of 103 degrees at home. Denies chest pain or shortness of breath. She is being managed for the following: COVID-19 Possible pneumonia on chest x-ray Possible bronchitis Oxygen low 90s At presentation. Continue with remdesivir. COVID precautions. Patient states that she does not tolerate steroids/she gets delirious on steroid and would like to hold on starting steroid for now. Nebs as needed, Continue with incentive spirometer. Pt w/ yellow green sputum At presentation , now getting commodity merchant in [place]. c/w azithro 10/14. Close monitor. Patient reports occasional shortness of breath with activity, will need two-step test prior to discharge. Possible acute sinusitis: Left maxillary sinus tender on exam, start Augmentin 10/16. Follow clinically. Add probiotic. DVT prophylaxis: Lovenox Disposition: Med/telemetry. pt/ot. Likely will need two-step test prior to DC likely tomorrow. Admission and Anticipated Discharge Date Admission Date: October 13, 2024 Subjective Patient was seen and examined at bedside. Patient was lying in bed, on RA, NAD. Patient reports feeling tired, More exhausted than yesterday and now has increased sinus congestion today. Maxillary sinus tenderness on left. No fever. WBC WNL. Patient reports cough improving, sputum yellow in color. Physical Exam Physical Exam: General-Not in acute distress, On RA Head- atraumatic Eyes- PERRL. ENT- oropharynx clear, Left maxillary sinus tenderness. Neck- supple, no JVD. Lungs- clear to auscultation no wheezing or crackles Heart- regular rate and rhythm; no murmur, no gallop. Abdomen- normal bowel sounds, soft, nontender, no distension Extremities- no pretibial edema, no erythema seen Neuro- alert, oriented PERRL, no facial palsy; no dysarthria; moves extremities Results & Data Results & Data Vital Signs (Past 12 Hours) Vital Signs Temp Pulse Pulse Resp BP Pulse Ox O2 Del Method 10/16/24 15:31 36.7 C 62 18 131/70 93 Room Air 10/16/24 15:29 91 10/16/24 14:16 74 10/16/24 11:18 36.7 C 68 115/72 95 Room Air 10/16/24 08:35 Room Air 10/16/24 07:45 36.8 C 66 18 108/66 92 Room Air 10/16/24 07:25 55 L
[2024-10-17 03:35] VITALS: RESP 18; TEMP 98.2
[2024-10-17 04:59] LABS: Hematocrit (blood only) 38.8 % (37.0-47.0); Hemoglobin 12.8 g/dl (12.0-16.0); Mean Corpuscular Hemoglobin 27.8 pg (25.0-34.0); Mean Corpuscular Volume 84.2 fL (80.0-100.0); Platelet Count 261 K/uL (130-400); RDW Coefficient of Variation 13.7 % (11.5-14.5); RDW Standard Deviation 42.2 fL (36.4-46.3); Red Blood Count 4.61 M/uL (4.20-5.40); White Blood Count 4.77 K/ul (4.8-10.8)
[2024-10-17 05:13] LABS: BUN Creatinine Ratio 26.9 (10-20); Calcium 8.7 mg/dl (8.6-10.3); Potassium 4.1 mmol/L (3.5-5.1)
[2024-10-17 07:41] VITALS: BP 129/73; PULSE 68; O2SAT 96
--- NOTE | 2024-10-17 12:00 | Discharge Summary ---
Date of Service October 17, 2024 Admission HPI Per Admitting Provider 69-year-old female with past medical history significant for hyperlipidemia, history of mixed rhinitis, laryngopharyngeal reflux, GERD, generalized osteoarthritis presents with nasal congestion, fever and cough and found to have COVID and chest x-ray showing possible pneumonia. Patient says last night she started to have stuffy nose and cough. Symptoms got worse today. She had a temperature of 103 degrees at home. Having nausea. Has headache. Has Body aches. Appetite is okay. Denies chest pain or shortness of breath. No abdominal pain. Normal bowel and bladder movements. Hemodynamics are okay. Oxygen saturation low 90s. Past med history. As mentioned above Past surgical history. Colonoscopy. EGD with biopsy. Removal of tonsils. Bilateral cataracts. Social history. . No smoking. No alcohol use. No drug use. Family history. Mother had basal cell carcinoma. Thyroid disorder. Father had dementia. Prostate cancer. Stroke. Sister had a von Willebrand's Admission Exam Per Admitting Provider General-Not in acute distress Head- atraumatic Eyes- PERRL. ENT- oropharynx clear Neck- supple, no JVD. Lungs- clear to auscultation no wheezing or crackles Heart- regular rate and rhythm; no murmur, no gallop. Abdomen- normal bowel sounds, soft, nontender, no distension Extremities- no pretibial edema, no erythema seen Neuro- alert, oriented PERRL, no facial palsy; no dysarthria; moves extremities Principal Diagnosis COVID-19 Possible pneumonia on chest x-ray Possible superimposed bacterial bronchitis Possible acute sinusitis Discharge Exam General-Not in acute distress, On RA Head- atraumatic Eyes- PERRL. ENT- oropharynx clear, Left maxillary sinus tenderness. Neck- supple, no JVD. Lungs- clear to auscultation no wheezing or crackles Heart- regular rate and rhythm; no murmur, no gallop. Abdomen- normal bowel sounds, soft, nontender, no distension Extremities- no pretibial edema, no erythema seen Neuro- alert, oriented PERRL, no facial palsy; no dysarthria; moves extremities Discharge Data Allergies Allergy/AdvReac Type Severity Reaction Status Date / Time Sulfa (Sulfonamide Allergy Mild raised Verified 12/19/10 14:12 Antibiotics) burning rash trimethoprim Allergy Mild raised Verified 12/19/10 14:12 burning rash hepatitis B virus vaccine Allergy Unknown Verified 12/19/10 14:12 tetracycline Allergy Unknown Verified 12/19/10 14:12 Consultations 10/12/24 21:08 ED Decision to Admit Stat Hospital Course (1) COVID-19: Plan 69-year-old female with past medical history significant for hyperlipidemia, history of mixed rhinitis, laryngopharyngeal reflux, GERD, generalized osteoarthritis presents with nasal congestion, fever and cough for about 1 day and found to have COVID 19 infection and chest x-ray showing possible pneumonia. She had a temperature of 103 degrees at home. Denies chest pain or shortness of breath. She is being managed for the following: COVID-19 Possible pneumonia on chest x-ray Possible bronchitis Oxygen low 90s At presentation. She completed the course of remdesivir inpatient. COVID precautions. Patient states that she does not tolerate steroids/hence steroid was not given during this admission. Continue with incentive spirometer Upon discharge for next 7 to 10 days. Patient reports cough getting better, sputum color getting Herd Tester. Patient reports no further shortness of breath with activity, she has been moving around/ambulating in the room. Patient reports feeling significantly better today. complete the course of azit hromycin upon discharge. Possible acute sinusitis: Left maxillary sinus tender on exam, start Augmentin 10/16. Patient feels better today, will complete the course upon discharge. DVT prophylaxis: Lovenox Patient being discharged to home with following instruction at the point of discharge: Follow-up with your primary care physician within a week time and likely you will need labs CBC/CMP/magnesium/phosphorus. You were diagnosed with COVID on 10/12/2024, you will need to maintain self- isolation for 5 days from that and wear masks around people for next 5 days. You completed the course of remdesivir while in hospital. For possible acute sinusitis, you are being discharged on antibiotic to complete the course. Probiotics will be added. Take your medications as prescribed. Please make sure that you are able to get your medications today by calling your pharmacy before you leave the hospital so that your treatment continuity is not broken. [facility] Attestation I certify that this patient is under my care and that I, or a physicians assistant professor of marine biology working with me, had a face to-face encounter that meets the [id number] encounter requirements with this patient. The encounter with the patient was in whole, or in part, for the following medical condition, which is the primary reason for home health care (list medical condition): I certify that, based on my findings, the following services are medically necessary home health services: My clinical findings support the need for the above services because: Further, I certify that my clinical findings support that this patient is homebound (i.e. absences from home require considerable and taxing effort and are for medical reasons or [facility] or infrequently or of short duration when for other reasons) because: Certification for Home Health Services: Based on the above findings, I certify that this patient is confined to the home and needs intermittent long term care, physical therapy and/or speech therapy or continues to need occupational therapy. The patient is under my care, and I have initiated the establishment of the plan of care. This patient will be followed by a physician who will periodically review the plan of care. Total Time Total Time Spent Total Time Spent (In Minutes): 35 Discharge Plan Discharge Items Patient Disposition: Home - Self-Care Reason For Visit: COVID PNEUMONIA Discharge Diagnosis: COVID-19 Possible pneumonia on chest x-ray Possible superimposed bacterial bronchitis Possible acute sinusitis Activity: Resume your previous activity Non-emergency contact: Primary Care Provider Call non-emergency contact if: you have any medication questions, your symptoms worsen and your temperature is above 101 Follow-up/Referrals: Jessie Davies, [Primary Care Provider] - Diet: Heart Healthy Addtl Attending Provider Instructions: Follow-up with your primary care physician within a week time and likely you will need labs CBC/CMP/magnesium/phosphorus. You were diagnosed with COVID on 10/12/2024, you will need to maintain self- isolation for 5 days from that and wear masks around people for next 5 days. You completed the course of remdesivir while in hospital. For possible acute sinusitis, you are being discharged on antibiotic to complete the course. Probiotics will be added. Take your medications as prescribed. Please make sure that you are able to get your medications today by calling your pharmacy before you leave the hospital so that your treatment continuity is not broken. Pending Studies at Discharge: No Stand-Alone Forms: [employer], Smoking Cessation Medications and DC Order Prescriptions: New amoxicillin-pot clavulanate 875-125 mg Tablet 1 tab PO BIDM 9 Days Qty: 18 0RF azithromycin 250 mg Tablet 250 mg PO QAM 1 Days Qty: 1 0RF fluticasone propionate 50 mcg/actuation [place],Suspension 1 spray NA DAILY Qty: 16 0RF Saline Mist 0.65 % Aerosol,[place] 2 spray NA BID PRN (Reason: nasal congestion) Qty: 44 0RF Advanced Probiotic 625 mg (10 billion cell) Capsule 1 cap PO DAILY 14 Days Qty: 14 0RF Continued Ascorbic Acid (Vitamin C *) 500 MG tablet 500 mg PO DAILY Qty: 0 Ergocalciferol (Vitamin D Cap) 50,000 INTERUNIT capsule 1 dose PO DAILY Qty: 0 Multivitamin tablet 1 tab PO DAILY Qty: 0 meclizine 25 mg tablet 25 mg PO DAILY Qty: 30 0RF CoQ-10 100 mg QAM Discontinued Ibuprofen (Advil) 200 MG tablet 200 - 600 mg PO Q4-6HR PRN Qty: 0 Discharge Orders: Discharge Order (Routine); Ordered 10/17/24 Ordered By: Viji Feng Admission Data Admit Date/Time: 10/13/24 00:49 Attending Provider: Viji Feng Admit Provider: Kulwinder Santos Primary Care Provider: Jessie Davies Other Providers: Kulwinedr Santos
== END 2024-10-17 14:05 | disposition home or self-care (01) | DRG 177 ==
LOC: ED 18:29 → EDINP 10-13 00:49 → SUATTDRO 10-13 00:49 → 2W 10-13 01:10
DX: J40 Bronchitis, not specified as acute or chronic; Z88.1 Allergy status to other antibiotic agents; J12.82 Pneumonia due to coronavirus disease 2019; J01.90 Acute sinusitis, unspecified; Z88.7 Allergy status to serum and vaccine; U07.1 COVID-19; Z88.2 Allergy status to sulfonamides